=== PATIENT | female | born 1940 | race Caucasian/White ===

== ENCOUNTER → 2016-05-04 | Outpatient (CLI) | payer MEDICARE, OTHER ==
[~2016-05-04] MED LIST: ASPIRIN 325MG325 MG PO; CITALOPRAM HYDR20 MG PO; HYDROXYZINE HYD10 MG PO; LIPITOR40 MG PO; LISINOPRIL10 MG PO; LOPRESSOR 25MG.25 MG PO; NORVASC 5MG. TAB5 MG PO; PLAVIX 75MG TAB75 MG PO; VIVELLE-DO0.075 MG/2
--- NOTE | 2016-05-04 13:34 | RADIOLOGY REPORT PS360 ---
[id number] VIEWS HISTORY: Post traumatic pain FALL WITH RT SHOULDER PAIN COMPARISON: None FINDINGS: No fracture or dislocation. No lytic or blastic change. There is normal mineralization. There are mild osteoarthritic changes of the acromioclavicular joint with a downsloping acromion which may result in impingement symptomatology upon the rotator cuff. The glenohumeral joint has an unremarkable appearance. IMPRESSION: 1. No acute fracture. 2. Mild osteoarthritic change of the acromioclavicular
== END ==
LOC: RAD 11:04
DX: M25.511 Pain in right shoulder (principal)

== ENCOUNTER → 2017-01-26 | Outpatient (CLI) | payer MEDICARE, OTHER ==
--- NOTE | 2017-01-27 07:50 | RADIOLOGY REPORT PS360 ---
MRI-L-SPINE W/O, MRI-3D RENDERING/MYELOGRAM HISTORY: Low back pain on the right side LUMBAR RADICULAR PAIN ORDERING PHYSICIAN: Konrad Jones MD PATIENT AGE: 76 years COMPARISON: Radiograph of 07/22/2015 TECHNIQUE: Standard multiplanar multiecho sequences are performed without contrast. 3-D MIP and myelographic images are also rendered and reviewed FINDINGS: There is normal alignment. The spinal cord ends at the L1 level. T11-T12: Degenerative disc disease with endplate irregularity. T12-L1 and L1-L2 have an unremarkable appearance. L2-L3: Degenerative disc disease with bulging disc. L3-L4: Degenerative disc disease with bulging disc slightly eccentric towards the left along with facet and ligamentum flavum hypertrophy with mild left-sided lateral recess and foraminal narrowing. L4-L5: Minimal concentric bulging disc. There is facet and ligamentum flavum hypertrophy with mild right lateral recess narrowing. L5-S1: Degenerative disc disease with bulging disc along with facet and ligamentum flavum hypertrophy with mild right-sided foraminal narrowing. No disc herniation or canal stenosis. Incidental note is made of multiple bilateral pelvic renal cyst are more prominent on the left. IMPRESSION: 1. Lumbar spondylosis with multilevel degenerative disc disease, bulging disc, and facet ligamentum flavum arthropathy with lateral recess and foraminal narrowing. Please see above for detailed description at each level. 2. No disc herniation or canal stenosis. IMPRESSION:
== END ==
LOC: RAD 01-25 08:00
DX: M54.16 Radiculopathy, lumbar region (principal); M54.5 Low back pain

== ENCOUNTER → 2017-02-07 | Outpatient (CLI) | payer MEDICARE, OTHER ==
--- NOTE | 2017-02-07 20:32 | RADIOLOGY REPORT PS360 ---
PROCEDURE: 2-D M-mode and color Doppler study INDICATIONS FOR THE TEST: Chest pain COPD Heart Murmur Tobacco Smoking Palpitations+ Fatigue Syncope Edema Hypertension+Diabetes Mellitus Rheumatic Fever SOB MARTÍNEZ Obesity Hyperlipidemia Family History HD Additional History AF, HHD, LOOP RECORDER PATIENT INFORMATION HEIGHT:65 WEIGHT:140 GENDER: Female B/P: 2-D/M-MODE INTERPRETATION: 2-D MEASUREMENTS OBSERVED VALUES IN CMS Right Ventricular Dimension (RVDd) 2.5 Interventricular Septum (Thickness)(IVsd) 1.0 Left Ventricular Internal Dimensions(LVIDd) 4.9 Left Ventricular Posterior Wall (Thickness)(LVPWd) 0.6 Aortic Root 2.6 Aortic Cusp Separation 1.8 Left Atrial Dimensions (LAD) 3.5 2D 1. Left atrium is qualitatively mildly enlarged, left ventricle is normal size, there is mild concentric left ventricular hypertrophy present, visually estimated ejection fraction 55% with no obvious regional wall motion abnormality. 2. The right atrium is mildly enlarged, right ventricle is mildly dilated with normal contractility. 3. The aortic valve is minimally thickened and fibrosed leaflet continue to display good mobility. 4. The mitral and tricuspid valve leaflets are minimally thickened. 5. The pulmonic valve is poorly visualized. 6. No significant pericardial effusion noted. DOPPLER INTERROGATION: Doppler interrogation of the aortic, mitral and tricuspid valvular presence of mild aortic, mild mitral and tricuspid regurgitation, calculated right ventricular systolic pressure is 52 mmHg consistent with moderate pulmonary hypertension, grade 1 diastolic dysfunction seen with tissue Doppler evidence of raised left atrial pressure. CONCLUSION: 1. Biatrial enlargement, normal left ventricular size, mild concentric left ventricular hypertrophy, visually estimated ejection fraction 55% with no obvious regional wall motion abnormality, grade 1 diastolic dysfunction seen with tissue Doppler evidence of raised left atrial pressure. 2. Mildly enlarged right ventricle with normal contractility. 3. Mild aortic, mild mitral and tricuspid regurgitation, calculated right ventricular systolic pressure is 52 mmHg consistent with moderate pulmonary hypertension. 4. No significant pericardial effusion noted.
--- NOTE | 2017-02-10 16:32 | RADIOLOGY REPORT PS360 ---
History and Indications: Hypertension, abnormal EKG Procedure: Patient received a 0.4 mg of Lexiscan, resting heart rate was 60 bpm, resting blood pressure 172/77, with Lexiscan maximum heart rate achieved was 100 bpm which is less than 85% of the maximum predicted heart rate and a blood pressure was 151/71. With Lexiscan patient complained of shortness of breath. Electrocardiogram: Resting electrocardiogram showed sinus rhythm, with Lexiscan there is less than 1.[address] segment depression noted from the baseline EKG. The EKG portion of the Lexiscan Myoview is nondiagnostic. Cardiac stress and resting SPECT images: Cardiac stress and the rest spect images were obtained using technetium 99 Myoview 10.4 mCi at rest and 32.3 mCi at stress, gated SPECT further analysis of segmental wall motion and calculation of the ejection fraction also done. Cardiac stress and rest images show decreased tracer activity in the anteroseptal wall which improves on the resting, suggestive of reversible ischemia. Computer derived ejection fraction is over 65% with no obvious regional wall motion abnormality, right ventricle is normal size and contractility. Conclusion: 1. The EKG portion of the Lexiscan Myoview is nondiagnostic. 2. Scintigraphic evidence of mild reversible ischemia involving the anteroseptal wall, computer derived ejection fraction is over 65% with no obvious regional wall motion abnormality, right ventricle is normal size and contractility. 3. Abnormal Lexiscan Myoview study.
== END ==
LOC: RAD 06:15
DX: I65.23 Occlusion and stenosis of bilateral carotid arteries (principal); R07.9 Chest pain, unspecified; I11.9 Hypertensive heart disease without heart failure; I48.91 Unspecified atrial fibrillation; I63.9 Cerebral infarction, unspecified; I10 Essential (primary) hypertension; E78.5 Hyperlipidemia, unspecified
CPT/HCPCS: A9502; J2785

== ENCOUNTER 2017-03-02 18:25 | Emergency (ER) | payer MEDICARE, OTHER ==
[~2017-03-02] VITALS: Ht 165.1 cm; Wt 64.0 kg
[2017-03-02] MEDS ORDERED: ASPIRIN 81MG TA81 MG PO (18:35)
[2017-03-02] MEDS ORDERED: CARTIA XT120 MG PO (18:35)
[2017-03-02] MEDS ORDERED: XARELTO20 MG PO (18:36)
--- OUTSIDE RECORDS SUMMARY | 2017-03-02 18:47 | External Medical Summary Rpt | CCD ---
Author Author , OSMAN Organization [employer] Address Unknown Phone [email or web address] Purpose Continuity of Care Document - 08-21-2016 through 2016 Problems Code Diagnosis DOS Provider Status E78.5 HYPERLIPIDE JONNY, UNSPECIFIED I10 ESSENTIAL (PRIMARY) HYPERTENSIO N M54.16 RADICULOPAT HY, LUMBAR REGION R00.2 PALPITATION S R53.1 WEAKNESS R53.83 Other fatigue R94.31 ABNORMAL ELECTROCARD IOGRAM [ECG] [EKG] Z86.73 Personal history of transient ischemic attack (TIA), and cerebral infarction without residual deficits Results Labs Lab Lab Date Result Refere Interp Status Commen Order Detail nces retati t Range on VENOUS O2 SAT ACADEMIC GUIDANCE SPECIALIST (03-02-2017 11:13) VENOUS 80.8 % 75-80 complet O2 SAT 017 ed CATH 11:13 LAB Arterial blood oxygen saturation measure (03-02-2017 11:13) Arteria = 79.9 90-100 complet l blood 017 % ed oxygen 11:13 saturat ion measure Activated clotting time (03-02-2017 11:08) Activat > 400 74-125 complet ed 017 SEC ed clottin 11:08 g time Activated clotting time (03-02-2017 11:01) Activat = 282 74-125 complet ed 017 SEC ed clottin 11:01 g time Basic metabolic panel (03-02-2017 07:46) Estimat = 54 59- complet ed 017 ML/MIN ed glomeru 07:46 lar filtrat ion rate (GF Serum = 1.0 0.55-1. complet or 017 mg/dL 02 ed plasma 07:46 creatin ine measure ment ( Carbon = 29 21.0-32 complet dioxide 017 mmoL/L .0 ed 07:46 measure ment Serum = 105 98-107 complet or 017 mmoL/L ed plasma 07:46 chlorid e measure ment (mo Serum = 9.0 8.5-10. complet or 017 mg/dL 1 ed plasma 07:46 calcium measure ment (mas Serum = 19 7-18 complet or 017 mg/dL ed plasma 07:46 urea nitroge n measure men Serum = 139 136-145 complet sodium 017 mmoL/L ed measure 07:46 ment Serum = 4.2 3.5-5.1 complet potassi 017 mmoL/L ed um 07:46 measure ment Serum = 93 74-106 complet or 017 mg/dL ed plasma 07:46 glucose measure ment ([facility] CBC w auto diff (03-02-2017 07:46) Mean = 29.3 27-31.2 complet corpusc 017 pg ed ular 07:46 hemoglo bin ([facility]) determ Lymphoc = 33.8 10-50.0 complet yte 017 % ed count, 07:46 blood, automat ed Absolut = 3.0 0.7-4.5 complet e 017 K/mm3 ed lymphoc 07:46 yte count Blood = 11.7 12.2-16 complet hemoglo 017 g/dL .2 ed bin 07:46 measure ment (mass/v olum Blood = 36.6 37.0-47 complet hematoc 017 % .0 ed rit 07:46 (volume fractio n) Granulo = 51.8 37.0-80 complet cyte 017 % .0 ed percent 07:46 age Blood = 4.5 1.8-7.8 complet granulo 017 K/mm3 ed cytes 07:46 automat ed count (numb Automat = 6.5 % 0.1-12. complet ed 017 0 ed blood 07:46 eosinop hils/10 0 leukocy t Automat = 0.6 0.0-0.4 complet ed 017 K/mm3 ed blood 07:46 eosinop hil count Baso % = 0.9 % 0.1-2.0 complet 017 ed 07:46 Automat = 0.1 0-0.2 complet ed 017 K/MM3 ed blood 07:46 basophi l count (count/ vo Blood = 8.8 4.8-10. complet leukocy 017 K/MM3 8 ed pavithra 07:46 count (number /volume ) Automat = 12.6 11.5-17 complet ed 017 % .5 ed erythro 07:46 cyte distrib ution width Red = 4.00 4.2-5.4 complet blood 017 M/mm3 ed cell 07:46 count Blood = 330 142-424 complet platele 017 K/mm3 ed t count 07:46 Automat = 7.6 7.4-10. complet ed 017 fl 4 ed blood 07:46 platele t mean volume hilda Jones % = 7.0 % 1.7-9.3 complet 017 ed 07:46 Absolut = 0.6 0.1-1.0 complet e 017 K/mm3 ed monocyt 07:46 e count Automat = 91.6 82.2-97 complet ed 017 fl .8 ed erythro 07:46 cyte mean corpusc ular v Automat = 32.0 31.8-35 complet ed 017 g/dl .4 ed erythro 07:46 cyte mean corpusc ular h Troponin T SerPl Ql (08-21-2016 18:49) Troponi 0.00 0.00-0. complet n I 017 ng/mL 07 ed SerPl-m 18:49 Cnc Troponin T SerPl Ql (08-21-2016 15:36) Troponi 0.00 0.00-0. complet n I 017 ng/mL 07 ed SerPl-m 15:36 Cnc BNP SerPl-mCnc (08-21-2016 15:27) BNP 29.0 0.0-100 complet SerPl-m 017 pg/mL .0 ed Cnc 15:27 LPL SerPl-cCnc (08-21-2016 15:27) Lipase 48 U/L 6-51 complet SerPl-c 017 ed Cnc 15:27 Comp Metab 1998 Pnl SerPl (08-21-2016 15:27) Anion 6.0 3.0-11. complet Gap3 017 mmol/L 0 ed SerPl-s 15:27 Cnc BUN/Cre 26.4 7.0-25. complet at 017 0 ed SerPl 15:27 Albumin 1.3 1.5-2.5 complet /Glob 017 g/dL ed SerPl 15:27 Globuli 3.3 complet n Ur 017 gm/dL ed Elph-mC 15:27 nc GFR/BSA 49 >60 complet .pred 017 mL/min/ ed SerPl 15:27 1.73 MDRD-Ar VRat Bilirub 0.4 0.3-1.2 complet 017 mg/dL ed SerPl-m 15:27 Cnc ALP 135 U/L 25-100 complet SerPl-c 017 ed Cnc 15:27 AST 27 U/L 0-33 complet SerPl-c 017 ed Cnc 15:27 ALT 30 U/L 7-40 complet SerPl w 017 ed 15:27 P-5'-P- cCnc Albumin 4.40 3.20-4. complet 017 g/dL 80 ed SerPl-m 15:27 Cnc Prot 7.7 5.7-8.2 complet SerPl-m 017 g/dL ed Cnc 15:27 Calcium 10.2 8.7-10. complet 017 mg/dL 4 ed XXX-sCn 15:27 c CO2 31.0 20.0-31 complet SerPl-s 017 mmol/L .0 ed Cnc 15:27 Chlorid 102 99-109 complet e 017 mmol/L ed SerPl-s 15:27 Cnc Potassi 4.1 3.5-5.5 complet um 017 mmol/L ed Bld-sCn 15:27 c Sodium 139 132-146 complet Bld-sCn 017 mmol/L ed c 15:27 BUN 29 9-23 complet Bld-mCn 017 mg/dL ed c 15:27 Glucose 22-2 96 70-100 complet 017 mg/dL ed Bld-mCn 15:27 c Creat 0422-2 1.10 0.60-1. complet Bld-mCn 017 mg/dL 30 ed c 15:27 CBC W Diff pnl,unspecified Bld (08-21-2016 15:27) Imm 04-22-2 0.01 0.00-0. complet Granulo 017 10*3/mm 03 ed cytes # 15:27 3 Bld Basophi 0422-2 0.08 0.00-0. complet ls # 017 10*3/mm 20 ed Bld 15:27 3 Auto Eosinop 22-2 0.75 0.10-0. complet hil # 017 10*3/mm 30 ed Bld 15:27 3 Auto Monocyt 22-2 0.84 0.00-1. complet es # 017 10*3/mm 00 ed Bld 15:27 3 Auto Lymphoc 22-2 3.44 0.60-4. complet ytes # 017 10*3/mm 80 ed Bld 15:27 3 Auto Neutrop 22-2 3.72 1.50-8. complet hils # 017 10*3/mm 30 ed Bld 15:27 3 Auto Imm 08-21-2 0.1 % 0.0-0.6 complet Granulo 017 ed cytes/l 15:27 euk NFr Bld Basophi 08-21-2 0.9 % 0.0-1.0 complet ls/leuk 017 ed NFr 15:27 Bld Auto Eosinop 08-21-2 8.5 % 0.0-3.0 complet hil/edmond 017 ed k NFr 15:27 Bld Auto Monocyt 22-2 9.5 % 0.0-12. complet es/leuk 017 0 ed NFr 15:27 Bld Auto Lymphoc 22-2 38.9 % 24.0-44 complet ytes/le 017 .0 ed uk NFr 15:27 Bld Auto Neutrop 22-2 42.1 % 41.0-71 complet hils/le 017 .0 ed uk NFr 15:27 Bld Auto Platele 08-21-2 331 150-450 complet t # Bld 017 10*3/mm ed Auto 15:27 3 PMV Bld 08-21-2 9.9 fL 6.0-12. complet Auto 017 0 ed 15:27 RDW RBC 08-21-2 44.3 fl 37.0-54 complet Auto 017 .0 ed 15:27 RDW RBC 08-21-2 13.0 % 11.3-14 complet 017 .5 ed Auto-Rt 15:27 o MCHC 08-21-2 32.0 32.0-36 complet RBC 017 g/dL .0 ed Auto-mC 15:27 nc MCH RBC 08-21-2 29.9 pg 27.0-31 complet Qn 017 .0 ed Auto 15:27 MCV RBC 08-21-2 93.3 fL 80.0-99 complet Auto 017 .0 ed 15:27 Hct VFr 08-21-2 43.1 % 34.5-44 complet Bld 017 .0 ed Auto 15:27 Hgb 08-21-2 13.8 11.5-15 complet Bld-mCn 017 g/dL .5 ed c 15:27 RBC # 08-21-2 4.62 3.89-5. complet Bld 017 10*6/mm 14 ed Auto 15:27 3 WBC 08-21-2 8.84 3.50-10 complet nRBC 017 10*3/mm .80 ed cor # 15:27 3 Bld Prothrombin time (08-21-2016 15:27) INR PPP 08-21-2 0.96 complet 017 ed 15:27 Prothro 08-21-2 10.4 9.6-11. complet mbin 017 Seconds 5 ed time 15:27
--- OUTSIDE RECORDS SUMMARY | 2017-03-02 18:47 | External Medical Summary Rpt | CCD ---
Author Author , OSMAN Organization [employer] Address Unknown Phone [email or web address] Purpose Continuity of Care Document - 08-21-2016 [...] retati t Range on VENOUS O2 SAT RESEARCH INSTRUCTOR (03-02-2017 11:13) VENOUS 80.8 % 75-80 complet [...] mg/dL ed plasma 07:46 glucose measure ment ([facility] CBC w auto diff (03-02-2017 07:46) Mean [...] blood 07:46 platele t mean volume hilda [place] % = 7.0 % 1.7-9.3 complet 017 [...]
--- OUTSIDE RECORDS SUMMARY | 2017-03-02 18:47 | External Medical Summary Rpt | CCD ---
Demographics Preferred Language Spanish Marital Status Unknown Presybeterian Affiliation Unknown Race Unknown Ethnic Group Unknown Author Author , OSMAN BREWER Address Unknown Phone Immunization Unable to retrieve immunization data due to connection failure with Immunization Registry. Please try again later.
--- OUTSIDE RECORDS SUMMARY | 2017-03-02 18:47 | External Medical Summary Rpt | CCD ---
Author Author [employer] Organization [employer] Address Unknown Phone Unavailable Purpose Continuity of Care Document - through 2016
--- OUTSIDE RECORDS SUMMARY | 2017-03-02 18:47 | External Medical Summary Rpt | CCD ---
Demographics Preferred Language Peruvian Marital Status Unknown Spiritism Affiliation Unknown Race Unknown Ethnic Group Unknown Author Author , OSMAN BREWER Address Unknown Phone Immunization Unable to retrieve immunization data due to connection failure with Immunization Registry. Please try again later.
--- OUTSIDE RECORDS SUMMARY | 2017-03-02 18:48 | External Medical Summary Rpt ---
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 Observa Value Referen Units Interpr Notes Date tion ce etation Range VENOUS 80.8 75 - 80 % High No Mar 02 O2 SAT informa 2017 CATH tion in 11:13 LAB source AM data Activated clotting time in Blood by Coagulation assay Observa Value Referen Units Interpr Notes Date tion ce etation Range Activated 74 - 125 SEC High No Mar 02 clotting alert informati 2017 time in on in 11:01 AM Blood by source Coagulati data on assay Basic metabolic panel in Blood Observa Value Referen Units Interpr Notes Date tion ce etation Range Urea 7 - 18 mg/dL High No Mar 02 nitrogen informati 2016 7:46 [Mass/vol on in AM ume] in source Serum or data Plasma Calcium 8.5 - mg/dL Normal No Mar 02 [Mass/vol 10.1 informati 2017 7:46 ume] in on in AM Serum or source Plasma data Chloride 98 - 107 mmoL/L Normal No Mar 02 [Moles/vo informati 2017 7:46 lume] in on in AM Serum or source Plasma data Carbon 21.0 - mmoL/L Normal No Mar 02 dioxide, 32.0 informati 2017 7:46 total on in AM [Moles/vo source lume] in data Serum or Plasma Creatinin 0.55 - mg/dL Normal No Mar 02 e 1.02 informati 2017 7:46 [Mass/vol on in AM ume] in source Serum or data Plasma Estimated 59- ML/MIN Low REFERENCE Mar 02 RANGE: 2016 7:46 glomerula >60 AM r ML/MIN/1. filtratio 73 SQUARE n rate METERSIf (GF this patient is -A merican, then multiply theresult by 1.210. Glucose 74 - 106 mg/dL Normal No Mar 02 [Mass/vol informati 2016 7:46 ume] in on in AM Serum or source Plasma data Potassium 3.5 - 5.1 mmoL/L Normal No Mar 02 informati 2016 7:46 [Moles/vo on in AM lume] in source Serum or data Plasma Sodium 136 - 145 mmoL/L Normal No Mar 02 [Moles/vo informati 2016 7:46 lume] in on in AM Serum or source Plasma data CBC W Auto Differential panel in Blood Observa Value Referen Units Interpr Notes Date tion ce etation Range Basophils 0 - 0.2 K/MM3 Normal No Mar 02 informati 2016 7:46 [#/volume on in AM ] in source Blood by data Automated count Basophils 0.1 - 2.0 % Normal No Mar 02 / informati 2016 7:46 leukocyte on in AM s in source Blood by data Automated count Eosinophi 0.0 - 0.4 K/mm3 High No Mar 02 ls informati 2016 7:46 [#/volume on in AM ] in source Blood by data Automated count Eosinophi 0.1 - % Normal No Mar 02 ls/100 12.0 informati 2016 7:46 leukocyte on in AM s in source Blood by data Automated count Granulocy 1.8 - 7.8 K/mm3 Normal No Mar 02 pavithra informati 2016 7:46 [#/volume on in AM ] in source Blood by data Automated count Granulocy 37.0 - % Normal No Mar 02 pavithra/100 80.0 informati 2016 7:46 leukocyte on in AM s in source Blood by data Automated count Hematocri 37.0 - % Low No Mar 02 t [Volume 47.0 informati 2017 7:46 on in AM Fraction] source of Blood data Hemoglobi 12.2 - g/dL Low No Mar 02 n 16.2 informati 2016 7:46 [Mass/vol on in AM ume] in source Blood data Lymphocyt 0.7 - 4.5 K/mm3 Normal No Mar 02 es informati 2016 7:46 [#/volume on in AM ] in source Unspecifi data ed specimen by Automated count Lymphocyt 10 - 50.0 % Normal No Mar 02 es informati 2016 7:46 [#/volume on in AM ] in source Unspecifi data ed specimen by Automated count Erythrocy 27 - 31.2 pg Normal No Mar 02 te mean informati 2016 7:46 corpuscul on in AM ar source hemoglobi data n [Entitic mass] Erythrocy 31.8 - g/dl Normal No Mar 02 te mean 35.4 informati 2017 7:46 corpuscul on in AM ar source hemoglobi data n concentra tion [Mass/vol ume] by Automated count Erythrocy 82.2 - fl Normal No Mar 02 te mean 97.8 informati 2016 7:46 corpuscul on in AM ar volume source [Entitic data volume] by Automated count Monocytes 0.1 - 1.0 K/mm3 Normal No Mar 02 informati 2016 7:46 [#/volume on in AM ] in source Blood by data Automated count Monocytes 1.7 - 9.3 % Normal No Mar 02 /100 informati 2017 7:46 leukocyte on in AM s in source Blood by data Automated count Platelet 7.4 - fl Normal No Mar 02 mean 10.4 informati 2016 7:46 volume on in AM [Entitic source volume] data in Blood by Automated count Platelets 142 - 424 K/mm3 Normal No Mar 02 informati 2016 7:46 [#/volume on in AM ] in source Blood data Erythrocy 4.2 - 5.4 M/mm3 Low No Mar 02 pavithra informati 2017 7:46 [#/volume on in AM ] in source Amniotic data fluid Erythrocy 11.5 - % Normal No Mar 02 te 17.5 informati 2017 7:46 distribut on in AM ion width source [Entitic data volume] by Automated count Leukocyte 4.8 - K/MM3 Normal No Mar 02 s 10.8 informati 2016 7:46 [#/volume on in AM ] in source Blood data Cobalamin (Vitamin B12) [Mass/volume] in Serum Observa Value Referen Units Interpr Notes Date tion ce etation Range Cobalamin 211 - 946 pg/mL No Performed Oct 18 (Vitamin informati at: CB 2016 7:51 B12) on in - [facility] AM [Mass/vol source ume] in data [id number] Serum 0 [place], [place] [id number] [employer] Counter Assistant: Hiram Moody PhD, Phone: [phone] Comprehensive metabolic 2000 panel in Serum or Plasma Observa Value Referen Units Interpr Notes Date tion ce etation Range Albumin/G 1.1 - 1.8 No Low No Oct 18 lobulin informati informati 2016 7:51 [Mass on in on in AM ratio] in source source Serum or data data Plasma Albumin 3.4 - 5.0 gm/dL Normal No Oct 18 [Mass/vol informati 2016 7:51 ume] in on in AM Serum or source Plasma data Alkaline 46 - 116 U/L High No Oct 18 phosphata informati 2016 7:51 se on in AM [Enzymati source c data activity/ volume] in Serum or Plasma Bilirubin 0.2 - 1.0 mg/dL Normal No Oct 18 .total informati 2016 7:51 [Mass/vol on in AM ume] in source Serum or data Plasma Urea 7 - 18 mg/dL High No Oct 18 nitrogen informati 2016 7:51 [Mass/vol on in AM ume] in source Serum or data Plasma Calcium 8.5 - mg/dL Normal No Oct 18 [Mass/vol 10.1 informati 2016 7:51 ume] in on in AM Serum or source Plasma data Chloride 98 - 107 mmoL/L Normal No Oct 18 [Moles/vo informati 2016 7:51 lume] in on in AM Serum or source Plasma data Carbon 21.0 - mmoL/L Normal No Oct 18 dioxide, 32.0 informati 2016 7:51 total on in AM [Moles/vo source lume] in data Serum or Plasma Creatinin 0.55 - mg/dL Normal No Oct 18 e 1.02 informati 2016 7:51 [Mass/vol on in AM ume] in source Serum or data Plasma Estimated 59- ML/MIN Low REFERENCE Oct 18 RANGE: 2016 7:51 glomerula >60 AM r ML/MIN/1. filtratio 73 SQUARE n rate METERSIf (GF this patient is -A merican, then multiply theresult by 1.210. Globulin 1.3 - 3.2 gm/dL High No Oct 18 [Mass/vol informati 2016 7:51 ume] in on in AM Serum source data Glucose 74 - 106 mg/dL Normal No Oct 18 [Mass/vol informati 2016 7:51 ume] in on in AM Serum or source Plasma data Potassium 3.5 - 5.1 mmoL/L Normal No Oct 18 informati 2016 7:51 [Moles/vo on in AM lume] in source Serum or data Plasma Sodium 136 - 145 mmoL/L Normal No Oct 18 [Moles/vo informati 2016 7:51 lume] in on in AM Serum or source Plasma data Aspartate 15 - 37 U/L Normal No Oct 18 informati 2016 7:51 aminotran on in AM sferase source [Enzymati data c activity/ volume] in Serum or Plasma Alanine 12 - 78 U/L Normal No Oct 18 aminotran informati 2016 7:51 sferase on in AM [Enzymati source c data activity/ volume] in Serum or Plasma Protein 6.4 - 8.2 gm/dL Normal No Oct 18 [Mass/vol informati 2016 7:51 ume] in on in AM Serum or source Plasma data Thyroxine (T4) free [Mass/volume] in Serum or Plasma Observa Value Referen Units Interpr Notes Date tion ce etation Range Thyroxine 0.76 - ng/dL Normal No Oct 18 (T4) 1.46 informati 2016 7:51 free on in AM [Mass/vol source ume] in data Serum or Plasma Lipid 1996 panel in Serum or Plasma Observa Value Referen Units Interpr Notes Date tion ce etation Range Cholester < 200 mg/dL No No Oct 18 ol informati informati 2017 7:51 [Moles/vo on in on in AM lume] in source source Unspecifi data data ed specimen Cholester 40 - 60 MG/DL High No Oct 18 ol in HDL informati 2016 7:51 on in AM [Mass/vol source ume] in data Serum or Plasma Cholester 0 - 130 mg/dL Normal No Oct 18 ol in LDL informati 2016 7:51 on in AM [Mass/vol source ume] in data Serum or Plasma by calculati on Triglycer 30 - 200 mg/dL Normal No Oct 18 nella informati 2017 7:51 [Moles/vo on in AM lume] in source Serum or data Plasma Cholester 0 - 40 No Normal No Oct 18 ol in informati informati 2016 7:51 VLDL on in on in AM [Mass/vol source source ume] in data data Serum or Plasma Thyrotropin [Units/volume] in Serum or Plasma Observa Value Referen Units Interpr Notes Date tion ce etation Range Thyrotrop 0.358 - uIU/ml Normal No Oct 18 in 3.740 informati 2016 7:51 [Units/vo on in AM lume] in source Serum or data Plasma CBC W Auto Differential panel in Blood Observa Value Referen Units Interpr Notes Date tion ce etation Range Basophils 0 - 0.2 K/MM3 Normal No Oct 18 informati 2016 7:51 [#/volume on in AM ] in source Blood by data Automated count Basophils 0.1 - 2.0 % Normal No Oct 18 /100 informati 2016 7:51 leukocyte on in AM s in source Blood by data Automated count Eosinophi 0.0 - 0.4 K/mm3 High No Oct 18 ls informati 2016 7:51 [#/volume on in AM ] in source Blood by data Automated count Eosinophi 0.1 - % Normal No Oct 18 ls/100 12.0 informati 2016 7:51 leukocyte on in AM s in source Blood by data Automated count Granulocy 1.8 - 7.8 K/mm3 Normal No Oct 18 pavithra informati 2016 7:51 [#/volume on in AM ] in source Blood by data Automated count Granulocy 37.0 - % Normal No Oct 18 pavithra/100 80.0 informati 2016 7:51 leukocyte on in AM s in source Blood by data Automated count Hematocri 37.0 - % Low No Oct 18 t [Volume 47.0 informati 2016 7:51 on in AM Fraction] source of Blood data Hemoglobi 12.2 - g/dL Normal No Oct 18 n 16.2 informati 2016 7:51 [Mass/vol on in AM ume] in source Blood data Lymphocyt 0.7 - 4.5 K/mm3 Normal No Oct 18 es informati 2016 7:51 [#/volume on in AM ] in source Unspecifi data ed specimen by Automated count Lymphocyt 10 - 50.0 % Normal No Oct 18 es informati 2016 7:51 [#/volume on in AM ] in source Unspecifi data ed specimen by Automated count Erythrocy 27 - 31.2 pg Normal No Oct 18 te mean informati 2016 7:51 corpuscul on in AM ar source hemoglobi data n [Entitic mass] Erythrocy 31.8 - g/dl Normal No Oct 18 te mean 35.4 informati 2016 7:51 corpuscul on in AM ar source hemoglobi data n concentra tion [Mass/vol ume] by Automated count Erythrocy 82.2 - fl Normal No Sep 19 te mean 97.8 informati 2017 7:51 corpuscul on in AM ar volume source [Entitic data volume] by Automated count Monocytes 0.1 - 1.0 K/mm3 Normal No Oct 18 informati 2017 7:51 [#/volume on in AM ] in source Blood by data Automated count Monocytes 1.7 - 9.3 % Normal No Sep 19 /100 informati 2017 7:51 leukocyte on in AM s in source Blood by data Automated count Platelet 7.4 - fl Low No Oct 18 mean 10.4 informati 2017 7:51 volume on in AM [Entitic source volume] data in Blood by Automated count Platelets 142 - 424 K/mm3 Normal No Oct 18 informati 2017 7:51 [#/volume on in AM ] in source Blood data Erythrocy 4.2 - 5.4 M/mm3 Low No Sep 19 pavithra informati 2017 7:51 [#/volume on in AM ] in source Amniotic data fluid Erythrocy 11.5 - % Normal No Oct 18 te 17.5 informati 2017 7:51 distribut on in AM ion width source [Entitic data volume] by Automated count Leukocyte 4.8 - K/MM3 Normal No Sep 19 s 10.8 informati 2016 7:51 [#/volume on in AM ] in source Blood data
--- OUTSIDE RECORDS SUMMARY | 2017-03-02 18:48 | External Medical Summary Rpt ---
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
--- NOTE | 2017-03-02 19:12 | Emergency Room Report ---
History of Present Illness Time Seen by MD Lizarraga Presenting Problem in Triage Pt arrived:Walked Presenting Problem:PT STATES SHE HAD A HEART CATH TODAY AND WAS DISCHARGED HOME. ARRIVED AT HOME HER CATH SITES AND IV SITE WERE BLEEDING. 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 N Clinical Suspician of Infection? N Mental Status: 1 - Regular (Normal Baseline) Sepsis Risk:Low Sepsis Risk Have you (or family members/close friends) recently traveled outside the [place]? N If Yes, where/when: Have you had exposure to infectious disease within the past month? TB? Other? Specify: Comment The patient presents with bleeding from an IV site and a cardiac cath puncture site. She had a cardiac cath done today. She had some bleeding from the sites afterwards and was kept for several hours and then discharged. She says she was still having a little bit of oozing from her IV site in her LEFT wrist which worsened when she got home "spurting blood". She also had some bleeding from her cardiac cath puncture site in her RIGHT wrist. She is on xarelto and aspirin. She thinks she has atrial fibrillation. She says she had 100 percent blockage on her cardiac cath and required a stent. ALLERGIES Coded Allergies: No Known Allergies (02/14/16) Home Medications Active Scripts Lisinopril 10 MG PO DAILY #30 TAB Ref 5 Prov: 02/17/16 Metoprolol Tartrate (Lopressor) 12.5 MG PO BID #60 TAB Ref 5 Prov: 02/17/16 Reported Medications ASPIRIN (Aspirin 325MG) 325 MG PO DAILY HYDROXYZINE HCL (Hydroxyzine Hydrochloride) 10 MG PO Q6HP PRN ANXIETY #30 TAB Citalopram Hydrobromide (Citalopram HBr) 20 MG PO DAILY #30 CLOPIDOGREL BISULFATE (PLAVIX) 75 MG PO DAILY Atorvastatin Calcium (Atorvastatin) 40 MG PO DAILY DILTIAZEM HCL (Cartia Xt) 120 MG PO DAILY #30 ASPIRIN (Aspirin) 81 MG PO DAILY Rivaroxaban (Xarelto) 20 MG PO DAILY History Medical History General Angina: No VT: No Hypertension? Yes Hyperlipidemia? No CHF? No COPD? No Asthma? No Hernia? No CVA? Yes Seizures? No Diabetes? No UTI? No Stones? Yes GB Disease: No Hepatitis? No Cataracts? No Glaucoma? No MRSA? No TB? No Anxiety? Yes Cancer? No More? No Immunization Hx DT/Tetanus > 10 Years Ago Flu 2017-18FSN Pneumonia Received In Past Surgical Hx Previous Surgery?Y MEIR RIGHT ESWL HEART CATH 03/02/17 Family History Family Hx Diabetes No CAD No Hypertension No Hyperlipidemia No Cancer No TB No Social History Smoking Hx Smoker: Never Smoker Tobacco: No Packs/day N/A Alcohol Alcohol: No Review of Systems All Other Systems Reviewed and Negative Skin see HPI Physical Exam Vital Signs Vital Signs Date Time Temp Pulse Resp B/P Pulse O2 O2 Flow FiO2 Ox Delivery Rate 03/02 193 98.7 77 18 143/60 97 03/02 1827 98.7 77 18 150/60 97 General Appearance normal appearance Respiratory Status No: respiratory distress. Cardiovascular normal peripheral pulses Neurologic alert, no motor/sensory deficits Medical Decision Making LABS/Meds/Orders Pt receiving controlled substance in ED? No Progress - The patient has had pressure dressings applied by nursing staff prior to my arrival. Bleeding has stopped. She has Tegaderm with a bloodsoaked 2 x 2 over her cardiac cath puncture wound in her RIGHT volar wrist, when removed there is no further bleeding. The 2 x 2 and Tegaderm were placed and a 2 x 2 and light pressure dressing with Coban and was reapplied. The IV site on her LEFT wrist shows no bleeding when bandages removed. An additional 2 x 2 and Tegaderm were placed over this covered by a 2 x 2 and light pressure dressing with Coban. Departure Departure Disposition DC Home or Self Care(routine) Clinical Impression Primary Impression: Hemorrhage due to vascular catheter Qualifiers: Encounter type: initial encounter Qualified Code: T82.838A - Hemorrhage due to vascular prosthetic devices, implants and grafts, initial encounter Condition STABLE Additional Instructions Keep pressure bandages on until tomorrow morning. If Bleeding Returns, Apply Pressure. If Unable to Stop Bleeding within 5 Minutes Return to the Emergency Department. ED Critical Care Critical Care No at 1948
[2017-03-02 19:34] VITALS: BP 143/60
== END 2017-03-02 19:35 | disposition home or self-care (01) ==
LOC: ER 18:25
PROC: 4A023N8 Measurement of Cardiac Sampling and Pressure, Bilateral, Percutaneous Approach (ICD-10-PCS; principal; 2017-03-02)
PROC: B2111ZZ Fluoroscopy of Multiple Coronary Arteries using Low Osmolar Contrast (ICD-10-PCS; 2017-03-02)
PROC: B2151ZZ Fluoroscopy of Left Heart using Low Osmolar Contrast (ICD-10-PCS; 2017-03-02)
PROC: 027034Z Dilation of Coronary Artery, One Artery with Drug-eluting Intraluminal Device, Percutaneous Approach (ICD-10-PCS; 2017-03-02)
DX: I25.119 Atherosclerotic heart disease of native coronary artery with unspecified angina pectoris (principal); T82.828A Fibrosis due to vascular prosthetic devices, implants and grafts, initial encounter; Z79.01 Long term (current) use of anticoagulants; I48.2 Chronic atrial fibrillation; I10 Essential (primary) hypertension; I27.20 Pulmonary hypertension, unspecified; R94.39 Abnormal result of other cardiovascular function study; R93.1 Abnormal findings on diagnostic imaging of heart and coronary circulation; I65.29 Occlusion and stenosis of unspecified carotid artery
CPT/HCPCS: C1725; C1769; C1876; C1894; J1644; Q9967

== ENCOUNTER 2017-03-06 08:33 | Observation (INO) | payer MEDICARE, OTHER ==
[~2017-03-06] VITALS: Ht 165.1 cm; Wt 63.2 kg
[~2017-03-06 08:33] MED LIST changes: +ASPIRIN 81MG TA81 MG PO; +CARTIA XT120 MG PO; +XARELTO20 MG PO
[2017-03-06 08:38] VITALS: BP 142/70
--- OUTSIDE RECORDS SUMMARY | 2017-03-06 09:03 | External Medical Summary Rpt | CCD ---
Author Author , [employer] Address Unknown Phone [email or web address] Purpose Continuity of Care Document - 08-21-2016 through 2016 Problems Code Diagnosis DOS Provider Status E78.5 HYPERLIPIDE JONNY, UNSPECIFIED I10 ESSENTIAL (PRIMARY) HYPERTENSIO N M54.16 RADICULOPAT HY, LUMBAR REGION R00.2 Palpitation s R53.1 WEAKNESS R53.83 Other fatigue R94.31 ABNORMAL ELECTROCARD IOGRAM [ECG] [EKG] T82.838A HEMORRHAGE DUE TO VASCULAR PROSTH DEV/GRFT, INIT Z86.73 Personal history of transient ischemic attack (TIA), and cerebral infarction without residual deficits Results Labs Lab Lab Date Result Refere Interp Status Commen Order Detail nces retati t Range on Arterial blood oxygen saturation measure (03-02-2017 11:13) Arteria = 79.9 90-100 complet l blood 017 % ed oxygen 11:13 saturat ion measure VENOUS O2 SAT CAMPUS REP (03-02-2017 11:13) VENOUS 80.8 % 75-80 complet O2 SAT 017 ed CATH 11:13 LAB Activated clotting time (03-02-2017 11:08) Activat > 400 74-125 complet ed 017 SEC ed clottin 11:08 g time Activated clotting time (03-02-2017 11:01) Activat = 282 74-125 complet ed 017 SEC ed clottin 11:01 g time CBC w auto diff (03-02-2017 07:46) Automat = 32.0 31.8-35 complet ed 017 g/dl .4 ed erythro 07:46 cyte mean corpusc ular h Automat = 91.6 82.2-97 complet ed 017 fl .8 ed erythro 07:46 cyte mean corpusc ular v Absolut = 0.6 0.1-1.0 complet e 017 K/mm3 ed monocyt 07:46 e count [place] % = 7.0 % 1.7-9.3 complet 017 ed 07:46 Automat = 7.6 7.4-10. complet ed 017 fl 4 ed blood 07:46 platele t mean volume hilda Blood = 330 142-424 complet platele 017 K/mm3 ed t count 07:46 Red = 4.00 4.2-5.4 complet blood 017 M/mm3 ed cell 07:46 count Automat = 12.6 11.5-17 complet ed 017 % .5 ed erythro 07:46 cyte distrib ution width Blood = 8.8 4.8-10. complet leukocy 017 K/MM3 8 ed pavithra 07:46 count (number /volume ) Automat = 0.1 0-0.2 complet ed 017 K/MM3 ed blood 07:46 basophi l count (count/ vo Baso % = 0.9 % 0.1-2.0 complet 017 ed 07:46 Automat = 0.6 0.0-0.4 complet ed 017 K/mm3 ed blood 07:46 eosinop hil count Automat = 6.5 % 0.1-12. complet ed 017 0 ed blood 07:46 eosinop hils/10 0 leukocy t Blood = 4.5 1.8-7.8 complet granulo 017 K/mm3 ed cytes 07:46 automat ed count (numb Granulo = 51.8 37.0-80 complet cyte 017 % .0 ed percent 07:46 age Blood = 36.6 37.0-47 complet hematoc 017 % .0 ed rit 07:46 (volume fractio n) Blood = 11.7 12.2-16 complet hemoglo 017 g/dL .2 ed bin 07:46 measure ment (mass/v olum Absolut = 3.0 0.7-4.5 complet e 017 K/mm3 ed lymphoc 07:46 yte count Lymphoc = 33.8 10-50.0 complet yte 017 % ed count, 07:46 blood, automat ed Mean = 29.3 27-31.2 complet corpusc 017 pg ed ular 07:46 hemoglo bin (MCH) determ Basic metabolic panel (03-02-2017 07:46) Serum = 19 7-18 complet or 017 mg/dL ed plasma 07:46 urea nitroge n measure men Serum = 9.0 8.5-10. complet or 017 mg/dL 1 ed plasma 07:46 calcium measure ment (mas Serum = 105 98-107 complet or 017 mmoL/L ed plasma 07:46 chlorid e measure ment (mo Carbon = 29 21.0-32 complet dioxide 017 mmoL/L .0 ed 07:46 measure ment Serum = 1.0 0.55-1. complet or 017 mg/dL 02 ed plasma 07:46 creatin ine measure ment ( Estimat = 54 59- complet ed 017 ML/MIN ed glomeru 07:46 lar filtrat ion rate (GF Serum = 93 74-106 complet or 017 mg/dL ed plasma 07:46 glucose measure ment (mas Serum = 4.2 3.5-5.1 complet potassi 017 mmoL/L ed um 07:46 measure ment Serum = 139 136-145 complet sodium 017 mmoL/L ed measure 07:46 ment Troponin T SerPl Ql (08-21-2016 18:49) Troponi 0.00 0.00-0. complet n I 017 ng/mL 07 ed SerPl-m 18:49 Cnc Troponin T SerPl Ql (08-21-2016 15:36) Troponi 0.00 0.00-0. complet n I 017 ng/mL 07 ed SerPl-m 15:36 Cnc CBC W Diff pnl,unspecified Bld (08-21-2016 15:27) WBC 8.84 3.50-10 complet nRBC 017 10*3/mm .80 ed cor # 15:27 3 Bld RBC # 4.62 3.89-5. complet Bld 017 10*6/mm 14 ed Auto 15:27 3 Hgb 13.8 11.5-15 complet Bld-mCn 017 g/dL .5 ed c 15:27 Hct VFr 43.1 % 34.5-44 complet Bld 017 .0 ed Auto 15:27 MCV RBC 93.3 fL 80.0-99 complet Auto 017 .0 ed 15:27 MCH RBC 29.9 pg 27.0-31 complet Qn 017 .0 ed Auto 15:27 MCHC 32.0 32.0-36 complet RBC 017 g/dL .0 ed Auto-mC 15:27 nc RDW RBC 13.0 % 11.3-14 complet 017 .5 ed Auto-Rt 15:27 o RDW RBC 44.3 fl 37.0-54 complet Auto 017 .0 ed 15:27 PMV Bld 9.9 fL 6.0-12. complet Auto 017 0 ed 15:27 Platele 331 150-450 complet t # Bld 017 10*3/mm ed Auto 15:27 3 Neutrop 42.1 % 41.0-71 complet hils/le 017 .0 ed uk NFr 15:27 Bld Auto Lymphoc 38.9 % 24.0-44 complet ytes/le 017 .0 ed uk NFr 15:27 Bld Auto Monocyt 2 9.5 % 0.0-12. complet es/leuk 017 0 ed NFr 15:27 Bld Auto Eosinop 2 8.5 % 0.0-3.0 complet hil/edmond 017 ed k NFr 15:27 Bld Auto Basophi 08-21-2 0.9 % 0.0-1.0 complet ls/leuk 017 ed NFr 15:27 Bld Auto Imm 08-21-2 0.1 % 0.0-0.6 complet Granulo 017 ed cytes/l 15:27 euk NFr Bld Neutrop 2 3.72 1.50-8. complet hils # 017 10*3/mm 30 ed Bld 15:27 3 Auto Lymphoc 04-22-2 3.44 0.60-4. complet ytes # 017 10*3/mm 80 ed Bld 15:27 3 Auto Monocyt 22-2 0.84 0.00-1. complet es # 017 10*3/mm 00 ed Bld 15:27 3 Auto Eosinop 22-2 0.75 0.10-0. complet hil # 017 10*3/mm 30 ed Bld 15:27 3 Auto Basophi 08-21-2 0.08 0.00-0. complet ls # 017 10*3/mm 20 ed Bld 15:27 3 Auto Imm 0422-2 0.01 0.00-0. complet Granulo 017 10*3/mm 03 ed cytes # 15:27 3 Bld Comp Metab 1998 Pnl SerPl (08-21-2016 15:27) Creat 08-21-2 1.10 0.60-1. complet Bld-mCn 017 mg/dL 30 ed c 15:27 Glucose 08-21- 96 70-100 complet 017 mg/dL ed Bld-mCn 15:27 c BUN 29 9-23 complet Bld-mCn 017 mg/dL ed c 15:27 Sodium 139 132-146 complet Bld-sCn 017 mmol/L ed c 15:27 Potassi 08-21-2 4.1 3.5-5.5 complet um 017 mmol/L ed Bld-sCn 15:27 c Chlorid 102 99-109 complet e 017 mmol/L ed SerPl-s 15:27 Cnc CO2 31.0 20.0-31 complet SerPl-s 017 mmol/L .0 ed Cnc 15:27 Calcium 08-21-2 10.2 8.7-10. complet 017 mg/dL 4 ed XXX-sCn 15:27 c Prot 08-21- 7.7 5.7-8.2 complet SerPl-m 017 g/dL ed Cnc 15:27 Albumin 08-21- 4.40 3.20-4. complet 017 g/dL 80 ed SerPl-m 15:27 Cnc ALT 30 U/L 7-40 complet SerPl w 017 ed 15:27 P-5'-P- cCnc AST 27 U/L 0-33 complet SerPl-c 017 ed Cnc 15:27 ALP 135 U/L 25-100 complet SerPl-c 017 ed Cnc 15:27 Bilirub 0.4 0.3-1.2 complet 017 mg/dL ed SerPl-m 15:27 Cnc GFR/BSA 49 >60 complet .pred 017 mL/min/ ed SerPl 15: 1.73 MDRD-Ar VRat Globuli 3.3 complet n Ur 017 gm/dL ed Elph-mC 15:27 nc Albumin 1.3 1.5-2.5 complet /Glob 017 g/dL ed SerPl 15: BUN/Cre 26.4 7.0-25. complet at 017 0 ed SerPl 15: Anion 6.0 3.0-11. complet Gap3 017 mmol/L 0 ed SerPl-s 15:27 Cnc LPL SerPl-cCnc (08-21-2016 15:27) Lipase 48 U/L 6-51 complet SerPl-c 017 ed Cnc 15:27 BNP SerPl-mCnc (08-21-2016 15:27) BNP 29.0 0.0-100 complet SerPl-m 017 pg/mL .0 ed Cnc 15:27 Prothrombin time (08-21-2016 15:27) Prothro 10.4 9.6-11. complet mbin 017 Seconds 5 ed time 15:27 INR PPP 0.96 complet 017 ed 15:27
--- OUTSIDE RECORDS SUMMARY | 2017-03-06 09:03 | External Medical Summary Rpt | CCD ---
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
--- OUTSIDE RECORDS SUMMARY | 2017-03-06 09:04 | External Medical Summary Rpt | CCD ---
Author Author , OSMAN BREWER Address Unknown Phone [email or web address] Immunization Name Date Rout CVX Reac Dose Comm Prov Is Faci e tion ent ider Refu lity Give sed n Infl 09-1 Intr 135 0.5 Hist D049 No D049 uenz 8-20 amus mL oric 01 01 a, 17 cula al High r Info rmat Dose ion - Sour ce Unsp ecif ied Zost 11-2 Subc 121 0.65 Hist WALM No WALM er 0-20 utan mL oric ART5 ART5 15 eous al 91 91 Info rmat ion - Sour ce Unsp ecif ied
--- OUTSIDE RECORDS SUMMARY | 2017-03-06 09:04 | External Medical Summary Rpt | CCD ---
Author Author , OSMAN BREWER Address Unknown Phone [email or web address] Immunization Name Date Rout CVX Reac Dose [...]
--- NOTE | 2017-03-06 09:35 | Emergency Room Report ---
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 N Clinical Suspician of Infection? N Mental Status: 1 - Regular (Normal Baseline) Sepsis Risk:Low Sepsis Risk Have you (or family members/close friends) recently traveled outside the [place]? N If Yes, where/when: Have you had exposure to infectious disease within the past month? N TB? Other? Specify: This is a 76 yrs old WF who is S?P stent 4 days ago, she had postopbleeding , stayed over night and was setnt home. After discharge she developed diarrhea 10- 20 a day, watery with no blood or abdominal pain, no vomiting. Source patient, RN notes reviewed, family, old records Exam Limitations no limitations ALLERGIES Coded Allergies: No Known Allergies (02/14/16) Home Medications Active Scripts Lisinopril 10 MG PO DAILY #30 TAB Ref 5 Prov: 02/17/16 Metoprolol Tartrate (Lopressor) 12.5 MG PO BID #60 TAB Ref 5 Prov: 02/17/16 Reported Medications ASPIRIN (Aspirin 325MG) 325 MG PO DAILY HYDROXYZINE HCL (Hydroxyzine Hydrochloride) 10 MG PO Q6HP PRN ANXIETY #30 TAB Citalopram Hydrobromide (Citalopram HBr) 20 MG PO DAILY #30 CLOPIDOGREL BISULFATE (PLAVIX) 75 MG PO DAILY Atorvastatin Calcium (Atorvastatin) 40 MG PO DAILY DILTIAZEM HCL (Cartia Xt) 120 MG PO DAILY #30 ASPIRIN (Aspirin) 81 MG PO DAILY Rivaroxaban (Xarelto) 20 MG PO DAILY History Medical History General Angina: No GA: No Hypertension? Yes Hyperlipidemia? No CHF? No COPD? No Asthma? No Hernia? No CVA? Yes Seizures? No Diabetes? No UTI? No Stones? Yes GB Disease: No Hepatitis? No Cataracts? No Glaucoma? No MRSA? No TB? No Anxiety? Yes Cancer? No More? No Immunization Hx DT/Tetanus > 10 Years Ago Flu 2016-SN Pneumonia Received In Past Surgical Hx Previous Surgery?Y MEIR RIGHT ESWL HEART CATH 03/02/17 Family History Family Hx Diabetes No CAD No Hypertension No Hyperlipidemia No Cancer No TB No Social History Smoking Hx Smoker: Never Smoker Tobacco: No Packs/day N/A Alcohol Alcohol: No Review of Systems All Other Systems Reviewed and Negative Constitutional no symptoms reported Eyes no symptoms reported ENT no symptoms reported. Respiratory no symptoms reported Cardiovascular no symptoms reported Gastrointestinal see HPI, diarrhea Genitourinary no symptoms reported. Musculoskeletal no symptoms reported Skin no symptoms reported Psychiatric/Neurological no symptoms reported Physical Exam Vital Signs Vital Signs Date Time Temp Pulse Resp B/P Pulse O2 O2 Flow FiO2 Ox Delivery Rate 03/06 0838 98.0 94 18 142/70 95 - WBC >12,000 or <4,000 or 10% bands? 2 or more SIRS Criteria Met? B/P:142/70 MAP:94 Creatinine >2.0? UA output<0.5ml/kg/hr for 2 hrs? Platelet count >100,000? Lactate >2.0mmol/1? INR >1.2 or PTT > than 60 sec? Evidence of Organ Dysfunction? Provider documented clinical suspician of infection? N Sepsis Criteria Count: 1 Sepsis Risk: Low Sepsis Risk General Appearance normal appearance, WD/WN Eye Exam - bilateral eye normal exam, bilateral eye PERRL, bilateral eye EOMI Ear, Nose, Throat hearing grossly normal, normal ENT inspection Neck normal inspection, non-tender, supple, full range of motion Respiratory Status Yes: trachea midline, chest symmetrical, non tender chest. No: respiratory distress. Lung Sounds bilateral: normal breath sounds, lungs clear. 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 No Results/Orders Laboratory Tests 03/06/17 0920: Magnesium 1.9 03/06/17 0920: Sodium 138, Potassium 3.1 L, Chloride 104, Carbon Dioxide 23, BUN 17, Creatinine 0.9, Estimated Creat Clear 53, Estimated GFR (MDRD) 61, Glucose 111 H, Calcium 9.3, Total Bilirubin 0.7, AST 77 H, ALT 63, Alkaline Phosphatase 148 H, Creatine Kinase 615 H, CK-MB (CK-2) Rel Index 0.1, CK and CKMB Interp < 0.5 , Troponin I 0.12 H, Total Protein 7.5, Albumin 3.4, Globulin 4.1 H, Albumin/ Globulin Ratio 0.8 L, Amylase 42, Lipase 120, WBC 6.1, RBC 3.79 L, Hgb 11.3 L , Hct 33.5 L, MCV 88.5, RDW 12.5, Plt Count 282, MPV 7.4, Gran % 68.2, Gran # 4.2, Lymphocytes % 19.8, Monocytes % 8.7, Eosinophils % 2.7, Basophils % 0.5, Lymphocytes # 1.2, Monocytes # 0.5, Eosinophils # 0.2, Basophils # 0.0, PUBS MCHC 33.7, MCH 29.8 03/06/17 0845: Urine Color YELLOW, Urine Appearance SL CLOUDY, Urine pH 5.5, Ur Specific [place] >= 1.030, Urine Protein TRACE H, Urine Ketones TRACE H, Urine Blood 2+ H, Urine Nitrate NEGATIVE, Urine Bilirubin NEGATIVE, Urine Urobilinogen 0.2, Ur Leukocyte Esterase NEGATIVE, Urine RBC 3-5, Urine WBC 5-10, Ur Squamous Epith Cells 5-10, Urine Bacteria 4+, Urine Mucus 1+, Urine Glucose NEGATIVE Current Medication Orders Sig/Emily Start time Last Medication Dose Route Stop Time Status Admin Potassium Chloride 40 MEQ ONCE ONE 03/06 1045 AC PO 03/06 1046 Sodium Chloride 1,000 ML .Q1H1M 03/06 930 DC 03/06 IV 03/06 1030 0926 Sodium Chloride 10 ML PRN PRN 03/06 930 AC IV 03/07 921 Sodium Chloride 1,000 ML .STK-MED ONE 03/06 924 DC IV Orders Procedure Date/time Status ABD ACUTE(MUL VIEWS) 03/06 928 Active MAGNESIUM 03/06 927 Complete DIARRHEA PANEL, PCR 03/06 927 Active URINALYSIS/COMPLETE 03/06 923 Complete LIPASE 03/06 923 Complete CBC WITH AUTO DIFF 03/06 923 Complete CARDIAC ENZYMES 03/06 923 Complete CHEM 12 PROFILE 03/06 923 Complete AMYLASE 03/06 923 Complete CULTURE, URINE 03/06 845 Active XRAY/CT/US XRAY/CT/US XRAY chest, abdomen XR interpretation by reviewed by me, discussed w/radiologist Xray Results normal/NAD, no fracture seen Comment NO ACUTE CT interpretation by reviewed by me Time results known: 1043 CT Results normal/NAD Departure Departure Time of Disposition 0932 Disposition Still a Patient Clinical Impression Primary Impression: Diarrhea Secondary Impressions: CAD (coronary artery disease) Condition STABLE Referrals Konrad Jones MD (Family) Discharge Counseling Counseled pt/family regarding diagnosis, test results, medications/RX, home care, follow up needs ED Critical Care Critical Care No If Critical Care minutes are documented, the time involved in the performance of seperately reportable procedures was not counted toward critical care time documented. I directly delivered medical care to this critically ill and/or injured patient. Timely evaluation and treatment was necessary to address the significant organ system(s) dysfunction present in this patient. at 1044
[2017-03-06 09:36] LABS: URINE BILIRUBIN - DIPSTICK NEGATIVE (NEG); URINE BLOOD 2+ (NEG)
[2017-03-06 09:38] LABS: HEMOGLOBIN 11.3 g/dL (12.2-16.2); LYMPH # 1.2 K/mm3 (0.7-4.5); LYMPH % 19.8 % (10-50.0)
[2017-03-06 10:05] LABS: BUN 17 mg/dL (7-18)
[2017-03-06 10:23] LABS: GFR (ESTIMATED) 61 ML/MIN (59-)
--- OUTSIDE RECORDS SUMMARY | 2017-03-06 11:59 | External Medical Summary Rpt | CCD ---
Author Author , OSMAN Organization OSMAN Address Unknown Phone [email or web address] Purpose Continuity of Care Document - 08-21-2016 through 2016 Results Labs Lab Lab Date Result Refere Interp Status Commen Order Detail nces retati t Range on Magnesium measurement (03-06-2017 09:20) Magnesi = 1.9 1.4-2.2 complet um 017 mg/dL ed measure 09:20 ment CBC w auto diff (03-06-2017 09:20) Blood = 6.1 4.8-10. complet leukocy 017 K/MM3 8 ed pavithra 09:20 count (number /volume ) Automat = 12.5 11.5-17 complet ed 017 % .5 ed erythro 09:20 cyte distrib ution width Red = 3.79 4.2-5.4 complet blood 017 M/mm3 ed cell 09:20 count Blood = 282 142-424 complet platele 017 K/mm3 ed t count 09:20 Automat = 7.4 7.4-10. complet ed 017 fl 4 ed blood 09:20 platele t mean volume [place] % = 8.7 % 1.7-9.3 complet 017 ed 09:20 Absolut = 0.5 0.1-1.0 complet e 017 K/mm3 ed monocyt 09:20 e count Automat = 88.5 82.2-97 complet ed 017 fl .8 ed erythro 09:20 cyte mean corpusc ular v Automat = 33.7 31.8-35 complet ed 017 g/dl .4 ed erythro 09:20 cyte mean corpusc ular h Mean = 29.8 27-31.2 complet corpusc 017 pg ed ular 09:20 hemoglo bin (MCH) determ Lymphoc = 19.8 10-50.0 complet yte 017 % ed count, 09:20 blood, automat ed Absolut = 1.2 0.7-4.5 complet e 017 K/mm3 ed lymphoc 09:20 yte count Blood = 11.3 12.2-16 complet hemoglo 017 g/dL .2 ed bin 09:20 measure ment (mass/v olum Blood = 33.5 37.0-47 complet hematoc 017 % .0 ed rit 09:20 (volume fractio n) Granulo = 68.2 37.0-80 complet cyte 017 % .0 ed percent 09:20 age Blood = 4.2 1.8-7.8 complet granulo 017 K/mm3 ed cytes 09:20 automat ed count (numb Automat = 2.7 % 0.1-12. complet ed 017 0 ed blood 09:20 eosinop hils/10 0 leukocy t Automat = 0.2 0.0-0.4 complet ed 017 K/mm3 ed blood 09:20 eosinop hil count Baso % = 0.5 % 0.1-2.0 complet 017 ed 09:20 Automat = 0.0 0-0.2 complet ed 017 K/MM3 ed blood 09:20 basophi l count (count/ vo Urinalysis with microscopy (03-06-2017 08:45) Urine 5 - 10 O complet leukocy 017 wbc/hpf ed pavithra 08:45 count (number /volume ) Urine 0.2 0.2 NEG complet urobili 017 L ed nogen 08:45 E.U./dL detecti on by test str [place] 5-10 0-5 complet s 017 5-10 L ed epithel 08:45 #/hpf ial cells detecti on in u Urine > = 1.005-1 complet specifi 017 1.030 .030 ed c 08:45 gravity measure ment Erythro 3-5 3-5 0 complet cytes 017 L ed detecti 08:45 rbc/hpf on in urine sedimen t Urine = TRACE NEG complet protein 017 mg/dL ed 08:45 measure ment by automat ed t Urine = 5.5 5.0-8.5 complet pH 017 ed 08:45 Urine NEGATIV NEG complet nitrite 017 E ed 08:45 NEGATIV detecti E L on by test strip Mucus 1+ 1+ L OCC complet detecti 017 ed on in 08:45 urine sedimen t by lig Mucus NEGATIV NEG complet detecti 017 E ed on in 08:45 NEGATIV urine E L sedimen t by lig Urine TRACE NEG complet ketones 017 TRACE L ed 08:45 mg/dL detecti on by automat ed pavithra Glucose = NEG complet ur 017 NEGATIV ed test 08:45 E strip Urine YELLOW YELLOW complet color 017 YELLOW ed 08:45 L Urine 2+ 2+ L NEG complet blood 017 ed detecti 08:45 on Urine NEGATIV NEG complet total 017 E ed bilirub 08:45 NEGATIV in E L detecti on by test Bacteri 4+ 4+ L O complet a 017 ed detecti 08:45 on in urine sedimen t by Urine SL CLEAR complet appeara 017 CLOUDY ed nce 08:45 SL determi CLOUDY nation L 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 complet Bld-mCn 017 mg/dL 30 ed c 15:27 CBC W Diff pnl,unspecified Bld (08-21-2016 15:27) Imm 08-21-2 0.01 0.00-0. complet Granulo 017 10*3/mm 03 ed cytes # 15:27 3 Bld Basophi 08-21-2 0.08 0.00-0. complet ls # 017 10*3/mm 20 ed Bld 15:27 3 Auto Eosinop 08-21-2 0.75 0.10-0. complet hil # 017 10*3/mm 30 ed Bld 15:27 3 Auto Monocyt 08-21-2 0.84 0.00-1. complet es # 017 10*3/mm 00 ed Bld 15:27 3 Auto Lymphoc 08-21-2 3.44 0.60-4. complet ytes # 017 10*3/mm 80 ed Bld 15:27 3 Auto Neutrop 08-21-2 3.72 1.50-8. complet hils # 017 10*3/mm 30 ed Bld 15:27 3 Auto Imm 08-21-2 0.1 % 0.0-0.6 complet Granulo 017 ed cytes/l 15:27 euk NFr Bld Basophi 08-21-2 0.9 % 0.0-1.0 complet ls/leuk 017 ed NFr 15:27 Bld Auto Eosinop 08-21-2 8.5 % 0.0-3.0 complet hil/edmond 017 ed k NFr 15:27 Bld Auto Monocyt 9.5 % 0.0-12. complet es/leuk 017 0 ed NFr 15:27 Bld Auto Lymphoc 38.9 % 24.0-44 complet ytes/le 017 .0 ed uk NFr 15:27 Bld Auto Neutrop 42.1 % 41.0-71 complet hils/le 017 .0 ed uk NFr 15:27 Bld Auto Platele 331 150-450 complet t # Bld 017 10*3/mm ed Auto 15:27 3 PMV Bld 9.9 fL 6.0-12. complet Auto 017 0 ed 15:27 RDW RBC 44.3 fl 37.0-54 complet Auto 017 .0 ed 15:27 RDW RBC 13.0 % 11.3-14 complet 017 .5 ed Auto-Rt 15:27 o MCHC 32.0 32.0-36 complet RBC 017 g/dL .0 ed Auto-mC 15:27 nc MCH RBC 29.9 pg 27.0-31 complet Qn 017 .0 ed Auto 15:27 MCV RBC 93.3 fL 80.0-99 complet Auto 017 .0 ed 15:27 Hct VFr 43.1 % 34.5-44 complet Bld 017 .0 ed Auto 15:27 Hgb 08-21- 13.8 11.5-15 complet Bld-mCn 017 g/dL .5 ed c 15:27 RBC # 08-21-2 4.62 3.89-5. complet Bld 017 10*6/mm 14 ed Auto 15:27 3 WBC 08-21- 8.84 3.50-10 complet nRBC 017 10*3/mm .80 ed cor # 15:27 3 Bld Prothrombin time (08-21-2016 15:27) INR PPP 08-21- 0.96 complet 017 ed 15:27 Prothro 10.4 9.6-11. complet mbin 017 Seconds 5 ed time 15:27
--- OUTSIDE RECORDS SUMMARY | 2017-03-06 11:59 | External Medical Summary Rpt | CCD ---
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
--- OUTSIDE RECORDS SUMMARY | 2017-03-06 11:59 | External Medical Summary Rpt | CCD ---
Author Author , OSMAN BREWER Address Unknown Phone [email or web address] Immunization Name Date Rout CVX Reac Dose [...]
--- OUTSIDE RECORDS SUMMARY | 2017-03-06 11:59 | External Medical Summary Rpt | CCD ---
Author Author , OSMAN BREWER Address Unknown Phone [email or web address] Immunization Name Date Rout CVX Reac Dose [...]
--- OUTSIDE RECORDS SUMMARY | 2017-03-06 12:00 | External Medical Summary Rpt ---
Author Author [employer], [employer] Organization [employer] Address Unknown Phone Unavailable Results Magnesium [Moles/volume] in Unspecified specimen Observa Value Referen Units Interpr Notes Date tion ce etation Range Magnesium 1.4 - 2.2 mg/dL Normal No Mar 06 informati 2016 9:20 [Moles/vo on in AM lume] in source Unspecifi data ed specimen CBC W Auto Differential panel in Blood Observa Value Referen Units Interpr Notes Date tion ce etation Range Basophils 0 - 0.2 K/MM3 Normal No Mar 06 informati 2016 9:20 [#/volume on in AM ] in source Blood by data Automated count Basophils 0.1 - 2.0 % Normal No Mar 06 /100 informati 2016 9:20 leukocyte on in AM s in source Blood by data Automated count Eosinophi 0.0 - 0.4 K/mm3 Normal No Mar 06 ls informati 2016 9:20 [#/volume on in AM ] in source Blood by data Automated count Eosinophi 0.1 - % Normal No Mar 06 ls/100 12.0 informati 2016 9:20 leukocyte on in AM s in source Blood by data Automated count Granulocy 1.8 - 7.8 K/mm3 Normal No Mar 06 pavithra informati 2016 9:20 [#/volume on in AM ] in source Blood by data Automated count Granulocy 37.0 - % Normal No Mar 06 pavithra/100 80.0 informati 2016 9:20 leukocyte on in AM s in source Blood by data Automated count Hematocri 37.0 - % Low No Mar 06 t [Volume 47.0 informati 2016 9:20 on in AM Fraction] source of Blood data Hemoglobi 12.2 - g/dL Low No Mar 06 n 16.2 informati 2016 9:20 [Mass/vol on in AM ume] in source Blood data Lymphocyt 0.7 - 4.5 K/mm3 Normal No Mar 06 es informati 2016 9:20 [#/volume on in AM ] in source Unspecifi data ed specimen by Automated count Lymphocyt 10 - 50.0 % Normal No Mar 5 es informati 2016 9:20 [#/volume on in AM ] in source Unspecifi data ed specimen by Automated count Erythrocy 27 - 31.2 pg Normal No Mar 06 te mean informati 2016 9:20 corpuscul on in AM ar source hemoglobi data n [Entitic mass] Erythrocy 31.8 - g/dl Normal No Mar 06 te mean 35.4 informati 2016 9:20 corpuscul on in AM ar source hemoglobi data n concentra tion [Mass/vol ume] by Automated count Erythrocy 82.2 - fl Normal No Mar 06 te mean 97.8 informati 2016 9:20 corpuscul on in AM ar volume source [Entitic data volume] by Automated count Monocytes 0.1 - 1.0 K/mm3 Normal No Mar 06 informati 2016 9:20 [#/volume on in AM ] in source Blood by data Automated count Monocytes 1.7 - 9.3 % Normal No Mar 06 /100 informati 2017 9:20 leukocyte on in AM s in source Blood by data Automated count Platelet 7.4 - fl Normal No Mar 06 mean 10.4 informati 2017 9:20 volume on in AM [Entitic source volume] data in Blood by Automated count Platelets 142 - 424 K/mm3 Normal No Mar 06 informati 2016 9:20 [#/volume on in AM ] in source Blood data Erythrocy 4.2 - 5.4 M/mm3 Low No Mar 06 pavithra informati 2016 9:20 [#/volume on in AM ] in source Amniotic data fluid Erythrocy 11.5 - % Normal No Mar 06 te 17.5 informati 2016 9:20 distribut on in AM ion width source [Entitic data volume] by Automated count Leukocyte 4.8 - K/MM3 Normal No Mar 06 s 10.8 informati 2016 9:20 [#/volume on in AM ] in source Blood data Oxygen saturation in Arterial blood Observa Value Referen Units Interpr Notes Date tion ce etation Range Oxygen 90 - 100 % Low No Mar 02 saturatio informati 2016 n in on in 11:13 AM Arterial source blood data VENOUS O2 SAT TOBACCO DIPPER Observa Value Referen Units Interpr Notes Date [...] High No Mar 02 clotting alert informati 2016 time in on in 11:01 AM Blood [...] Normal No Mar 02 [Mass/vol 10.1 informati 2016 7:46 ume] in on in AM Serum or source Plasma data Chloride 98 - 107 mmoL/L Normal No Mar 02 [Moles/vo informati 2016 7:46 lume] in on in AM Serum or source Plasma data Carbon 21.0 - mmoL/L Normal No Mar 02 dioxide, 32.0 informati 2016 7:46 total on in AM [Moles/vo source lume] in data Serum or Plasma Creatinin 0.55 - mg/dL Normal No Mar 02 e 1.02 informati 2016 7:46 [Mass/vol on in AM [...] Basophils 0.1 - 2.0 % Normal No Nov 1 /100 informati 2017 7:46 leukocyte on in AM s in source Blood by data Automated count Eosinophi 0.0 - 0.4 K/mm3 High No Nov 1 ls informati 2016 7:46 [#/volume on in AM ] in source Blood by data Automated count Eosinophi 0.1 - % Normal No Nov 1 ls/100 12.0 informati 2016 7:46 leukocyte on in AM s in source Blood by data Automated count Granulocy 1.8 - 7.8 K/mm3 Normal No Nov 1 pavithra informati 2016 7:46 [#/volume on in AM ] in source Blood by data Automated count Granulocy 37.0 - % Normal No Nov 1 pavithra/100 80.0 informati 2017 7:46 leukocyte on in AM s in source Blood by data Automated count Hematocri 37.0 - % Low No Nov 1 t [Volume 47.0 informati 2016 7:46 on in AM Fraction] source of Blood data Hemoglobi 12.2 - g/dL Low No Nov 1 n 16.2 informati 2016 7:46 [Mass/vol on in AM ume] in source Blood data Lymphocyt 0.7 - 4.5 K/mm3 Normal No Nov 1 es informati 2017 7:46 [#/volume on in AM ] in source Unspecifi data ed specimen by Automated count Lymphocyt 10 - 50.0 % Normal No Nov 1 es informati 2016 7:46 [#/volume on in AM ] in source Unspecifi data ed specimen by Automated count Erythrocy 27 - 31.2 pg Normal No Nov 1 te mean informati 2017 7:46 corpuscul on in AM ar source hemoglobi data n [Entitic mass] Erythrocy 31.8 - g/dl Normal No Nov 1 te mean 35.4 informati 2017 7:46 corpuscul on in AM ar source hemoglobi data n concentra tion [Mass/vol ume] by Automated count Erythrocy 82.2 - fl Normal No Nov 1 te mean 97.8 informati 2017 7:46 corpuscul on in AM ar volume source [Entitic data volume] by Automated count Monocytes 0.1 - 1.0 K/mm3 Normal No Nov 1 informati 2016 7:46 [#/volume on in AM ] in source Blood by data Automated count Monocytes 1.7 - 9.3 % Normal No Nov 1 /100 informati 2017 7:46 leukocyte on in AM s in source Blood by data Automated count Platelet 7.4 - fl Normal No Mar 02 mean 10.4 informati 2016 7:46 volume on in AM [Entitic source volume] data in Blood by Automated count Platelets 142 - 424 K/mm3 Normal No Mar 02 informati 2017 7:46 [#/volume on in AM ] in source Blood data Erythrocy 4.2 - 5.4 M/mm3 Low No Mar 02 pavithra informati 2016 7:46 [#/volume on in AM ] in source Amniotic data fluid Erythrocy 11.5 - % Normal No Mar 02 te 17.5 informati 2016 7:46 distribut on in AM ion width [...] [facility] AM [Mass/vol source ume] in data [address] [place] [address] Serum 0 [place], [place] [id number] Mri Ct Tech: Hiram Moody PhD, Phone: [phone] Comprehensive metabolic 2000 panel in Serum [...] mg/dL Normal No Oct 18 .total informati 2017 7:51 [Mass/vol on in AM ume] in source Serum or data Plasma Urea 7 - 18 mg/dL High No Oct 18 nitrogen informati 2017 7:51 [Mass/vol on in AM ume] in [...] Normal No Oct 18 (T4) 1.46 informati 2017 7:51 free on in AM [Mass/vol source [...] No Oct 18 ol in HDL informati 2017 7:51 on in AM [Mass/vol source ume] in data Serum or Plasma Cholester 0 - 130 mg/dL Normal No Oct 18 ol in LDL informati 2017 7:51 on in AM [Mass/vol source ume] in data Serum or Plasma by calculati on Triglycer 30 - 200 mg/dL Normal No Oct 18 nella informati 2017 7:51 [Moles/vo on in AM lume] in source Serum or data Plasma Cholester 0 - 40 No Normal No Oct 18 ol in informati informati 2017 7:51 VLDL on in on in AM [Mass/vol source source ume] in data data Serum or Plasma Thyrotropin [Units/volume] in Serum or Plasma Observa Value Referen Units Interpr Notes Date tion ce etation Range Thyrotrop 0.358 - uIU/ml Normal No Oct 18 in 3.740 informati 2017 7:51 [Units/vo on in AM lume] in source Serum or data Plasma CBC W Auto Differential panel in Blood Observa Value Referen Units Interpr Notes Date tion ce etation Range Basophils 0 - 0.2 K/MM3 Normal No Oct 18 informati 2017 7:51 [#/volume on in AM ] in source Blood by data Automated count Basophils 0.1 - 2.0 % Normal No Oct 18 / informati 2017 7:51 leukocyte on in AM s in source Blood by data Automated count Eosinophi 0.0 - 0.4 K/mm3 High No Oct 18 ls informati 2017 7:51 [#/volume on in AM [...] Normal No Oct 18 pavithra/100 80.0 informati 2017 7:51 leukocyte on in AM [...] count Erythrocy 82.2 - fl Normal No Oct 18 te mean 97.8 informati 2016 7:51 corpuscul on in AM ar volume [...] 424 K/mm3 Normal No Oct 18 informati 2016 7:51 [#/volume on in AM ] in source Blood data Erythrocy 4.2 - 5.4 M/mm3 Low No Oct 18 pavithra informati 2017 7:51 [#/volume on in AM ] in source Amniotic data fluid Erythrocy 11.5 - % Normal No Oct 18 te 17.5 informati 2017 7:51 distribut on in AM ion width source [Entitic data volume] by Automated count Leukocyte 4.8 - K/MM3 Normal No Oct 18 s 10.8 informati 2017 7:51 [#/volume on in AM ] in source Blood data
--- OUTSIDE RECORDS SUMMARY | 2017-03-06 12:00 | External Medical Summary Rpt ---
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
[2017-03-06 14:21] VITALS: BP 151/68
[2017-03-06 14:28] VITALS: BP 151/68
[2017-03-06 15:37] VITALS: BP 168/83
--- NOTE | 2017-03-06 16:50 | HISTORY AND PHYSICAL REPORT ---
See Addendum History and Physical (FCA) Date of admission: 03/06/17 Chief complaint: Diarrhea History: History of Present Illness: This 76-year-old white female presented to the emergency room complaining of diarrhea. She states that she thinks she had about 50 stools yesterday. On the day of admission she has had only one stool. She has not had blood in her stool. She was admitted for rehydration and monitoring. Significant in her recent past history is a coronary artery stent placed on Tuesday by Dr. Valencia. 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 She was subsequently hospitalized on 1016 for a hypertensive episode. She takes amlodipine 5 mg a day. She is on Xarelto status post stent placement. Past Medical History: Medical History: CAD? Yes (recent stent) Angina: No VA: No Hypertension? Yes Hyperlipidemia? No CHF? No COPD? No Asthma? No GERD? No Gastric ulcers? No GI Bleed? No Hernia? No Thyroid Problems? No Hypothyroidism? No CVA? 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 No Diabetes? No Renal Insuffiency? No UTI? No Stones? Yes GB Disease: No Nephritic Syndrome? No Asplenia? No Hepatitis? No Arthritis? Yes Migraines? No Cataracts? No Glaucoma? No MRSA? No HIV? No TB? No Anxiety? Yes Depression? Yes (citalopram 20 mg) Cancer? No More? No Surgical history: Previous Surgery?Y 1. MEIR 2. RIGHT ESWL 3. HEART CATH 03/02/17 with stent Medications: Active Scripts Lisinopril 10 MG PO DAILY #30 TAB Ref 5 Prov: 02/17/16 Metoprolol Tartrate (Lopressor) 12.5 MG PO BID #60 TAB Ref 5 Prov: 02/17/16 Reported Medications HYDROXYZINE HCL (Hydroxyzine Hydrochloride) 10 MG PO Q6HP PRN ANXIETY #30 TAB Atorvastatin Calcium (Atorvastatin) 40 MG PO DAILY DILTIAZEM HCL (Cartia Xt) 120 MG PO DAILY #30 ASPIRIN (Aspirin) 81 MG PO DAILY Rivaroxaban (Xarelto) 20 MG PO DAILY Allergies: Coded Allergies: No Known Allergies (02/14/16) Family History: Family history: Postive for: CAD, DM, HTN. Negative for: cancer. Additional family history: Heart disease runs on the mother's side of the family. Her father and sister both had diabetes mellitus. Social History: Smoking Hx Tobacco: No Smoker: Never Smoker Type: N/A Packs/day: N/A Are you exposed to second hand No Alcohol: Alcohol: No Hx of Drug Use: Drug Use? 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 Review of Systems: Patient unresponsive? No Constitutional Positive for: chills, fatigue, malaise, weak, recent weight loss (probably). ENT Positive for: nose bleed. Cardiovascular Positive for: palpitations. No: chest pain, edema. Respiratory No: shortness of air, productive cough (sputum), wheezing. GI Positive for: abdominal pain, diarrhea. No: GERD, hematochezia, melena, vomitting. (female) No: flank pain. Skin Positive for: bruising (at neck). No: swelling. Neurological Positive for: light headed, weakness. No: change in LOC, syncope. Immune/allergy No: allergy. Eyes No: blurry vision, vision loss. Musculoskeletal No: extremity pain, extremity swelling. Heme Positive for: bruising. No: bleeding. Endocrine Positive for: cold intolerance. Psychiatric No: agitation, confused, delusional, depression, change in mental status. Physical Exam: Vital signs: 1ST Vital Signs Result Date Time Pulse Ox 95 03/06 838 B/P 142/70 03/06 838 Temp 98.0 03/06 838 Pulse 94 03/06 838 Resp 18 03/06 838 O2 Delivery ROOM AIR 03/06 142 Exam: General appearance: alert, no acute distress Eyes: anicteric, conjunctiva clear, PERRLA ENT: mucous membranes moist Neck: no JVD, healing wound at the RIGHT supraclavicular area. Cardiovascular: regular rate & rhythm (S4) Respiratory: aerating well, no respiratory distress ABD: soft, no tenderness, no guarding, no organomegaly, bowel sounds present (hyperactive) Extremities: no peripheral edema Musculoskeletal: equal muscle strength Skin: dry, intact Neuro: oriented, speech clear, only subtle decrease in the LEFT nasal labial fold Lab data: Labs: Laboratory Tests 03/06/17 1100: Troponin I < 0.02 03/06/17 0920: Magnesium 1.9 03/06/17 0920: Sodium 138, Potassium 3.1 L, Chloride 104, Carbon Dioxide 23, BUN 17, Creatinine 0.9, Estimated Creat Clear 53, Estimated GFR (MDRD) 61, Glucose 111 H, Calcium 9.3, Total Bilirubin 0.7, AST 77 H, ALT 63, Alkaline Phosphatase 148 H, Creatine Kinase 615 H, CK-MB (CK-2) Rel Index 0.1, CK and CKMB Interp < 0.5 , Troponin I 0.12 H, Total Protein 7.5, Albumin 3.4, Globulin 4.1 H, Albumin/ Globulin Ratio 0.8 L, Amylase 42, Lipase 120, WBC 6.1, RBC 3.79 L, Hgb 11.3 L , Hct 33.5 L, MCV 88.5, RDW 12.5, Plt Count 282, MPV 7.4, Gran % 68.2, Gran # 4.2, Lymphocytes % 19.8, Monocytes % 8.7, Eosinophils % 2.7, Basophils % 0.5, Lymphocytes # 1.2, Monocytes # 0.5, Eosinophils # 0.2, Basophils # 0.0, PUBS MCHC 33.7, MCH 29.8 03/06/17 0845: Urine Color YELLOW, Urine Appearance SL CLOUDY, Urine pH 5.5, Ur Specific [place] >= 1.030, Urine Protein TRACE H, Urine Ketones TRACE H, Urine Blood 2+ H, Urine Nitrate NEGATIVE, Urine Bilirubin NEGATIVE, Urine Urobilinogen 0.2, Ur Leukocyte Esterase NEGATIVE, Urine RBC 3-5, Urine WBC 5-10, Ur Squamous Epith Cells 5-10, Urine Bacteria 4+, Urine Mucus 1+, Urine Glucose NEGATIVE Microbiology 03/06 845 URINE CC: Urine Culture - RECD Diagnosis(es): 1. Diarrhea 2. CAD (coronary artery disease) 3. Recent cerebrovascular accident (CVA) Status: Acute 4. Hypertension Status: Acute Plan: See orders. IV fluids. Patient seems to be doing well. at 1650
--- NOTE | 2017-03-06 18:36 | RADIOLOGY REPORT PS360 ---
ABD ACUTE(MUL VIEWS) HISTORY: diarrhes ax 3 days diarrhea several days Patient Age: 76 years: Female Ordering Physician: Ginny Santacruz MD TECHNIQUE: . Upright chest with flat and upright views abdomen COMPARISON :CT abdomen pelvis from from 03/06/2015 FINDINGS : Upright chest. Lungs clear no active disease loop recorder projected over the left heart border. It minor apical pleural scarring. No free air beneath diaphragm Findings and upright views of abdomen. No free air. Nonspecific gas pattern. No bowel dilatation or obstruction. Suggestion of to 2 tiny less than 3 mm calcifications projected over the left kidney. Question small renal calculi. Barely appreciable. Could be within overlying stool as well. Small phleboliths at the pelvic basin. No organomegaly.. IMPRESSION: Nonspecific bowel gas pattern. No bowel dilatation or obstruction No free intraperitoneal air evident. No active disease in the chest. 2 tiny punctate calcifications project over left kidney. Possible tiny renal calculi but barely appreciable. (Note (note There was 1 tiny likely vascular calcifications at left kidney seen in 2014 CT but no significant renal calculi)
[2017-03-06 19:57] VITALS: BP 161/73
[2017-03-06 20:30] VITALS: BP 161/73
[2017-03-07] VITALS (8 sets, daily range): BP systolic 128–174; BP diastolic 58–82
[2017-03-07] MEDS ORDERED: LISINOPRIL 20MG20 MG PO (08:12)
--- NOTE | 2017-03-07 08:56 | CONSULT NOTE ---
Standard Demographics Patient Demo Date of Consultation: 03/07/17 Referring Provider: Arash Jones MD Reason for Consultation: Elevated troponin, CAD with recent HARRIS PRIMARY DIAGNOSIS: HYPOKALEMIA Problem list Problem list: 1. Coronary artery disease A. Cardiac catheterization, 03/02/2017, 1. Severe single vessel coronary artery disease involving the proximal LAD which correlated to the abnormal Myoview with successful stenting of the proximal LAD severe disease reduced to 0% with 1 drug -eluting stent. 2. Mild to moderate pulmonary hypertension 3. Slightly hyperdynamic left ventricular function 4. Normal LVEDP 2. History of CVA, 2017 A. Implantation of loop recorder, 2017, revealed paroxysmal atrial fibrillation. Patient started on Xarelto therapy. B. Carotid ultrasound, 10/2015, less than 20 percent stenosis of the RCA, 40-59 percent stenosis of the RCA. 3. Hypertension A. Echocardiogram 01/2017, 1. Biatrial enlargement, normal left ventricular size, mild concentric left ventricular hypertrophy, visually estimated ejection fraction 55% with no obvious regional wall motion abnormality, grade 1 diastolic dysfunction seen with tissue Doppler evidence of raised left atrial pressure. 2. Mildly enlarged right ventricle with normal contractility. 3. Mild aortic, mild mitral and tricuspid regurgitation, calculated right ventricular systolic pressure is 52 mmHg consistent with moderate pulmonary hypertension. 4. No significant pericardial effusion noted. 4. Hyperlipidemia History of present illness: History of present illness: 76-year-old white female with recent coronary stenting as noted above presented to the emergency department for weakness, fatigue and diarrhea. Patient denies any blood in the stools. She has had some intermittent mild chest discomfort and cardiac troponins were drawn. They have returned elevated and cardiology consulted for evaluation and recommendations. 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 No Ulcers No MRSA No GB Disease No Other KIDNEY STONES Past Surgical HX: Previous Surgery?Y MEIR RIGHT ESWL HEART CATH 03/02/17 Allergies Coded Allergies: No Known Allergies (02/14/16) Home medications: Active Scripts Metoprolol Tartrate (Lopressor) 12.5 MG PO BID #60 TAB Ref 5 Prov: 02/17/16 Reported Medications HYDROXYZINE HCL (Hydroxyzine Hydrochloride) 10 MG PO Q6HP PRN ANXIETY #30 TAB LISINOPRIL (Lisinopril) 20 MG PO DAILY Atorvastatin Calcium (Atorvastatin) 40 MG PO DAILY DILTIAZEM HCL (Cartia Xt) 120 MG PO DAILY #30 ASPIRIN (Aspirin) 81 MG PO DAILY Rivaroxaban (Xarelto) 20 MG PO DAILY Current Medications: Current Medications Amlodipine Besylate 5 MG DAILY PO (CAN) Aspirin 81 MG DAILY PO Diltiazem HCl 120 MG DAILY PO Lisinopril 20 MG DAILY PO Rivaroxaban 20 MG DAILY PO Ticagrelor 90 MG BID PO Sodium Chloride 10 ML PRN PRN IV Potassium Chloride 20 MEQ TID PO Potassium Chloride/Sodium Chloride 1,000 ML .STK-MED ONE IV (DC) Sodium Chloride 1,000 ML .STK-MED ONE IV (DC) Sodium Chloride 1,000 ML .STK-MED ONE IV (DC) Famotidine 20 MG BID IV Loperamide HCl 2 MG PRN PRN PO Ondansetron HCl 4 MG Q8HP PRN IV Potassium Chloride/Sodium Chloride 1,000 ML .Q10H IV Sodium Chloride 8 ML BID IV Potassium Chloride 0 .STK-MED ONE PO (DC) Potassium Chloride 40 MEQ ONCE ONE PO (DC) Sodium Chloride 1,000 ML .Q1H1M IV (DC) Sodium Chloride 10 ML PRN PRN IV Sodium Chloride 1,000 ML .STK-MED ONE IV (DC) Immunization HX DT/Tetanus > 10 Years Flu [id number] Pneumonia RECEIVED IN PAST TB Test in last year No Family history Family HX Family Hx Insignificant No Diabetes No CAD No Hypertension No Hyperlipidemia No Cancer No TB No Social Hx: Smoking HX Tobacco No Type N/A Packs/day N/A Are you/the child exposed to second-hand smoke: No Alcohol Alcohol: No Hx of Drug Use Drug Use? No Patien't marital status is Patient's support system is good Review of systems: Constitutional see HPI, malaise, weakness. Respiratory No: no symptoms reported. Cardiovascular see HPI, chest pain Gastrointestinal/Abdominal diarrhea Genitourinary No: no symptoms reported. Musculoskeletal No: no symptoms reported. Neurological No: no symptoms reported. Exam: Admission Vital Signs: 1ST Vital Signs Result Date Time Pulse Ox 95 03/06 838 B/P 142/70 03/06 838 Temp 98.0 03/06 838 Pulse 94 03/06 838 Resp 18 03/06 838 O2 Delivery ROOM AIR 03/06 1421 Last Vital Signs: Vital Signs Result Date Time Pulse Ox 96 03/07 830 B/P 174/82 03/07 830 O2 Delivery ROOM AIR 03/07 830 Temp 98.1 03/07 830 Pulse 78 03/07 830 Resp 20 03/07 830 Exam General appearance: alert, awake, no acute distress Neck: no JVD, carotid bruit Cardiovascular: regular rate & rhythm, no murmur Respiratory: clear to auscultation, good air movement ABD: soft Extremities: moves all, no peripheral edema Neuro: alert, intact, oriented Laboratory data: Laboratory Tests 03/07/17 0613: Sodium 138, Potassium 4.2, Chloride 109 H, Carbon Dioxide 23, BUN 11, Creatinine 0.9, Estimated Creat Clear 54, Estimated GFR (MDRD) 61, Glucose 87, Calcium 8.3 L, Creatine Kinase 566 H, CK-MB (CK-2) Rel Index 0.1, CK and CKMB Interp 0.8, Troponin I 0.09 H 03/06/17 1100: Troponin I < 0.02 03/06/17 0920: Magnesium 1.9 03/06/17 0920: Sodium 138, Potassium 3.1 L, Chloride 104, Carbon Dioxide 23, BUN 17, Creatinine 0.9, Estimated Creat Clear 53, Estimated GFR (MDRD) 61, Glucose 111 H, Calcium 9.3, Total Bilirubin 0.7, AST 77 H, ALT 63, Alkaline Phosphatase 148 H, Creatine Kinase 615 H, CK-MB (CK-2) Rel Index 0.1, CK and CKMB Interp < 0.5 , Troponin I 0.12 H, Total Protein 7.5, Albumin 3.4, Globulin 4.1 H, Albumin/ Globulin Ratio 0.8 L, Amylase 42, Lipase 120, WBC 6.1, RBC 3.79 L, Hgb 11.3 L , Hct 33.5 L, MCV 88.5, RDW 12.5, Plt Count 282, MPV 7.4, Gran % 68.2, Gran # 4.2, Lymphocytes % 19.8, Monocytes % 8.7, Eosinophils % 2.7, Basophils % 0.5, Lymphocytes # 1.2, Monocytes # 0.5, Eosinophils # 0.2, Basophils # 0.0, PUBS MCHC 33.7, MCH 29.8 03/06/17 0845: Urine Color YELLOW, Urine Appearance SL CLOUDY, Urine pH 5.5, Ur Specific [place] >= 1.030, Urine Protein TRACE H, Urine Ketones TRACE H, Urine Blood 2+ H, Urine Nitrate NEGATIVE, Urine Bilirubin NEGATIVE, Urine Urobilinogen 0.2, Ur Leukocyte Esterase NEGATIVE, Urine RBC 3-5, Urine WBC 5-10, Ur Squamous Epith Cells 5-10, Urine Bacteria 4+, Urine Mucus 1+, Urine Glucose NEGATIVE Microbiology Date/Time Procedure - Status Source Growth 03/06 845 Urine Culture - RECD URINE CC Plan Assessment: 1. Elevated troponin in a patient with recent coronary artery stenting. Clinically stable at this time. Will resume lisinopril, cardizem, ASA, brilinta and, if needed, ranexa for possible coronary spasm/pain from recent coronary procedure. 2. Profuse diarrhea without evidence of GI bleed 3. Hypokalemia, corrected 4. Mild anemia 5. History of CVA, ILR has revealed A. fib for which the patient is on Xarelto. Plan: Continue treatment of diarrhea. No further cardiac workup at this time. Discussed with Dr. Valencia. at 0863
--- NOTE | 2017-03-07 08:58 | ACUTE CARE PROGRESS NOTE (QUA) ---
Progress Notes Subjective Date 03/07/17 Time 0853 Note The patient states that she has had 4 diarrhea stools this morning. Specimen for PCR diarrhea panel has not been obtained. She is not uncomfortable. Objective Findings Laboratory Tests 03/07/17 0613: Sodium 138, Potassium 4.2, Chloride 109 H, Carbon Dioxide 23, BUN 11, Creatinine 0.9, Estimated Creat Clear 54, Estimated GFR (MDRD) 61, Glucose 87, Calcium 8.3 L, Creatine Kinase 566 H, CK-MB (CK-2) Rel Index 0.1, CK and CKMB Interp 0.8, Troponin I 0.09 H 03/06/17 1100: Troponin I < 0.02 03/06/17 0920: Magnesium 1.9 03/06/17 0920: Sodium 138, Potassium 3.1 L, Chloride 104, Carbon Dioxide 23, BUN 17, Creatinine 0.9, Estimated Creat Clear 53, Estimated GFR (MDRD) 61, Glucose 111 H, Calcium 9.3, Total Bilirubin 0.7, AST 77 H, ALT 63, Alkaline Phosphatase 148 H, Creatine Kinase 615 H, CK-MB (CK-2) Rel Index 0.1, CK and CKMB Interp < 0.5 , Troponin I 0.12 H, Total Protein 7.5, Albumin 3.4, Globulin 4.1 H, Albumin/ Globulin Ratio 0.8 L, Amylase 42, Lipase 120, WBC 6.1, RBC 3.79 L, Hgb 11.3 L , Hct 33.5 L, MCV 88.5, RDW 12.5, Plt Count 282, MPV 7.4, Gran % 68.2, Gran # 4.2, Lymphocytes % 19.8, Monocytes % 8.7, Eosinophils % 2.7, Basophils % 0.5, Lymphocytes # 1.2, Monocytes # 0.5, Eosinophils # 0.2, Basophils # 0.0, PUBS MCHC 33.7, MCH 29.8 Last VS-Temp:98.1 B/P:174/82 Pulse:78 Resp:20 SaO2:96 ROOM AIR Last weight lbs:139 oz:7 K.248 Method:Bed Scales Exam General appearance: alert, no acute distress Eyes: anicteric ENT: mucous membranes moist Neck: no JVD Cardiovascular: regular rate & rhythm Respiratory: clear to auscultation ABD: soft, no tenderness, abnormal bowel sounds (hypoactive not hyperactive) Extremities: no peripheral edema Musculoskeletal: equal muscle strength Skin: dry, intact Neuro: alert, no deficit, oriented, speech clear Reviewed: medications, vital signs, lab results, consult note Assessment/Plan Problem List 1. Diarrhea 2. CAD (coronary artery disease) 3. Recent cerebrovascular accident (CVA) Status: Acute 4. Hypertension Status: Acute 5. Elevated troponin level Patient condition Stable Plan: continue current care, the diarrhea panel needs to be obtained.cardiology has seen the patient and is not concerned about current enzyme levels. This inpt stay is expected to cross 2 MNs from start of care Yes at 0857
--- NOTE | 2017-03-07 09:29 | PHARMACY CLINIC NOTE ---
Patient Demographics Patient Demographics Admission date: 03/06/17 Date: 03/07/17 Time: 0928 Allergies Coded Allergies: No Known Allergies (02/14/16) HEIGHT- FT: 5 IN: 5.00 K.248 VTE General Information Disclaimer The following section includes nursing documentation that has been pulled in for pharmacy review. Patient's VTE score: 2 Patient's VTE Risk: VERY LOW RISK Clinical trial participant? No VTE prophylaxis [id number] VTE prophylaxis ordered? Yes Type of prophylaxis/treatment: LISA (AND XARELTO) at 0928
[2017-03-07] MEDS ORDERED: DULOXETINE HYDR30 MG PO (09:36)
[2017-03-07 10:20] LABS: AEROMONAS NOT DETECTED (NOT DETECTE); ASTROVIRUS NOT DETECTED (NOT DETECTE); CYCLOSPORA CAYETANENSIS NOT DETECTED (NOT DETECTE); E COLI O157 NOT DETECTED (NOT DETECTE); ENTEROAGGREGATIVE E COLI NOT DETECTED (NOT DETECTE); ENTEROPATHOGENIC E COLI NOT DETECTED (NOT DETECTE); ENTEROTOXIGENIC E COLI NOT DETECTED (NOT DETECTE); NOROVIRUS NOT DETECTED (NOT DETECTE); SAPOVIRUS NOT DETECTED (NOT DETECTE); SHIGA-LIKE TOXIN PROD. E COLI NOT DETECTED (NOT DETECTE); SHIGELLA/ENTEROINVASIVE E COLI NOT DETECTED (NOT DETECTE); VIBRIO CHOLERAE NOT DETECTED (NOT DETECTE)
[2017-03-07] MEDS ORDERED: METOPROLOL SUCC25 M2 PO (11:06)
[2017-03-07] MEDS ORDERED: BRILINTA90 M1 PO (12:19)
[2017-03-08 00:14] VITALS: BP 116/65
[2017-03-08 04:07] VITALS: BP 119/59
[2017-03-08 08:27] LABS: HEMOGLOBIN 10.3 g/dL (12.2-16.2); LYMPH # 1.7 K/mm3 (0.7-4.5); LYMPH % 25.7 % (10-50.0)
[2017-03-08 08:30] VITALS: BP 120/49
--- NOTE | 2017-03-08 09:06 | ACUTE CARE PROGRESS NOTE (QUA) ---
Progress Notes Subjective Date 03/08/17 Time 0830 Note Her stools are still loose but the frequency has decreased significantly. He denies abdominal pain. She is tolerating her diet although does not have much appetite. Denies nausea or vomiting. She is eager to go home. Objective Findings Laboratory Tests 03/08/17 0713: Sodium 136, Potassium 4.1, Chloride 105, Carbon Dioxide 24, BUN 13, Creatinine 1.0, Estimated Creat Clear 49 L, Estimated GFR (MDRD) 54 L, Glucose 96, Calcium 8.6, Total Bilirubin 0.4, AST 54 H, ALT 55, Alkaline Phosphatase 120 H , Total Protein 6.6, Albumin 2.9 L, Globulin 3.7 H, Albumin/Globulin Ratio 0.8 L, WBC 6.7, RBC 3.47 L, Hgb 10.3 L, Hct 31.0 L, MCV 89.5, RDW 12.5, Plt Count 280, MPV 7.6, Gran % 58.1, Gran # 3.9, Lymphocytes % 25.7, Monocytes % 7.7 , Eosinophils % 8.0, Basophils % 0.5, Lymphocytes # 1.7, Monocytes # 0.5, Eosinophils # 0.5 H, Basophils # 0.0, PUBS MCHC 33.4, MCH 29.8 Last VS-Temp:98.3 B/P:120/49 Pulse:70 Resp:18 SaO2:95 ROOM AIR Last weight lbs:139 oz:7 K.248 Method:Bed Scales Exam General appearance: alert, no acute distress ENT: mucous membranes moist Cardiovascular: regular rate & rhythm Respiratory: clear to auscultation ABD: non-distended, soft, no tenderness Reviewed: medications, vital signs, lab results, nursing notes Assessment/Plan Problem List 1. Enteritis 2. CAD (coronary artery disease) 3. Recent cerebrovascular accident (CVA) Status: Acute 4. Hypertension Status: Acute 5. Elevated troponin level Patient condition Improving Plan: She will be discharged home and continue on her same home medications. She is to advance her diet as tolerated. She will followup in one week. This inpt stay is expected to cross 2 MNs from start of care Yes at 1919
[2017-03-08 10:14] VITALS: BP 120/49
== END 2017-03-08 10:25 | disposition home or self-care (01) ==
LOC: ER 08:33 → 2ND 11:36 → ER 11:36 → 2ND 11:36
PROVIDERS: Emergency Medicine; Family Medicine
DX: K52.9 Noninfective gastroenteritis and colitis, unspecified (principal); E87.6 Hypokalemia; R74.8 Abnormal levels of other serum enzymes; I25.10 Atherosclerotic heart disease of native coronary artery without angina pectoris; I10 Essential (primary) hypertension; F32.9 Major depressive disorder, single episode, unspecified; I27.20 Pulmonary hypertension, unspecified; D64.9 Anemia, unspecified; Z86.73 Personal history of transient ischemic attack (TIA), and cerebral infarction without residual deficits; Z83.3 Family history of diabetes mellitus; Z82.49 Family history of ischemic heart disease and other diseases of the circulatory system; Z79.01 Long term (current) use of anticoagulants; Z79.82 Long term (current) use of aspirin; Z79.899 Other long term (current) drug therapy; Z95.5 Presence of coronary angioplasty implant and graft
CPT/HCPCS: G0378

== ENCOUNTER → 2017-03-17 | Outpatient (CLI) | payer MEDICARE, OTHER ==
[~2017-03-17] MED LIST changes: +BRILINTA90 M1 PO; +DULOXETINE HYDR30 MG PO; +LISINOPRIL 20MG20 MG PO; +METOPROLOL SUCC25 M2 PO
[2017-03-17 10:09] LABS: HEMOGLOBIN 10.8 g/dL (12.2-16.2); LYMPH # 1.9 K/mm3 (0.7-4.5); LYMPH % 10.9 % (10-50.0)
[2017-03-17 11:07] LABS: NEUTROPHILS 86 % (42-76)
[2017-03-17 11:15] LABS: BILIRUBIN, INDIRECT 0.29 mg/dL (0-0.9); BUN 27 mg/dL (7-18)
[2017-03-17 11:21] LABS: GFR (ESTIMATED) 48 ML/MIN (59-)
== END ==
LOC: LAB 08:48
PROVIDERS: Internal Medicine
DX: R04.0 Epistaxis (principal); I25.10 Atherosclerotic heart disease of native coronary artery without angina pectoris; I48.0 Paroxysmal atrial fibrillation; R94.5 Abnormal results of liver function studies; R06.02 Shortness of breath

== ENCOUNTER 2017-03-22 11:29 | Outpatient (CLI) | payer MEDICARE, OTHER ==
--- NOTE | 2017-03-21 13:31 | RADIOLOGY REPORT PS360 ---
CHEST(2 VIEWS-NOT PORTABLE) HISTORY: COUGH,SINUSITIS ORDERING PHYSICIAN: Konrad Jones MD PATIENT AGE: 76 years COMPARISON: None available FINDINGS: The cardiomediastinal silhouette and pulmonary vascularity are within normal limits. There is a loop recorder device noted along the major chest wall The lungs are clear without infiltrates, suspicious nodules, or pleural effusions. No acute bony abnormalities. IMPRESSION: No change with no acute finding
[2017-03-22 11:40] VITALS: BP 125/43
[2017-03-22 12:05] VITALS: BP 122/49
[2017-03-22 12:40] VITALS: BP 119/51
== END 2017-03-22 12:45 | disposition home or self-care (01) ==
LOC: COP 11:29
DX: R05 Cough (principal); J01.80 Other acute sinusitis; E86.0 Dehydration